=== PATIENT | female | born 1975 | race Caucasian/White ===

== ENCOUNTER → 2018-01-18 16:41 | Outpatient (CLI) | payer BC, SELFPAY ==
--- NOTE | 2018-01-18 16:48 | MM_ITS ---
MM Dig screening mamm BI w/CAD CAD Screening COMPARISON: None, this is baseline INDICATION: There is no personal or family history of breast cancer TECHNIQUE: Standard CC and MLO images were obtained. R2 CAD reviewed. FINDINGS: Prominent heterogenic fibroglandular densities are seen in the subareolar regions and upper outer quadrants. There is a possible asymmetric density upper outer quadrant right breast and is asymmetric density near the axilla tail the left breast possibly low-lying no in addition to area highlighted by CAD as deep to the nipple left breast. Recommend patient return for spot compression views of both breast the areas marked on the film, ultrasound may be necessary as well. There are no suspicious microcalcifications. IMPRESSION: Moderately dense parenchymal pattern with possible asymmetric densities in each breast BI-RADS Category: 0 Need Additional Imaging Evaluation RECOMMENDED FOLLOW-UP: IMM - IMMEDIATE FOLLOW-UP RECOMMENDED (A letter has been sent to the patient regarding results of the study.)
== END ==
PROVIDERS: Family Provider Family Medicine; PCP Family Medicine; Visit Provider Obstetrics & Gynecology
DX: Z12.31 Encounter for screening mammogram for malignant neoplasm of breast (principal)
CPT/HCPCS: 77067

== ENCOUNTER → 2018-02-04 15:05 | Outpatient (CLI) | payer BC, SELFPAY ==
--- NOTE | 2018-02-04 15:10 | MM_ITS ---
MM Dig mamm BI DX w/CAD INDICATION: Abnormal baseline screening mammogram ORDERING PHYSICIAN: Bobby Moreno MD PATIENT AGE: 43 years COMPARISON: 01/18/2018 TECHNIQUE: Problem-solving views performed of both breasts FINDINGS: This report is delayed waiting on the patient to return for an ultrasound. That has not yet occurred therefore, a report will be issued on the mammogram. There is average to dense fibroglandular tissue. Right breast: 8 mm nodular opacity lateral aspect right breast periareolar region. The asymmetric density in the lateral aspect of the right breast may represent overlapping fibroglandular tissue.. Rolled views fail to demonstrate a nodule in the lateral aspect of the right breast. Ultrasound recommended of the right breast Left breast: 15 mm Asymmetric density in the deep lateral aspect of the left breast once again noted on the spot compression views somewhat ill-defined. This also is noted on the rolled views. Ultrasound is suggested. The asymmetric density in the subareolar region on the MLO view does appear to compress out IMPRESSION: Persistent nodular densities in the deep lateral left breast and lateral right breast periareolar region. Ultrasound suggested BI-RADS Category: 0 Need Additional Imaging Evaluation RECOMMENDED FOLLOW-UP: IMM - IMMEDIATE FOLLOW-UP RECOMMENDED (A letter has been sent to the patient regarding results of the study.)
== END ==
PROVIDERS: Visit Provider Obstetrics & Gynecology
DX: R92.8 Other abnormal and inconclusive findings on diagnostic imaging of breast (principal)
CPT/HCPCS: 77066

== ENCOUNTER → 2018-02-17 15:12 | Outpatient (CLI) | payer BC, SELFPAY ==
--- NOTE | 2018-02-17 15:16 | US_ITS ---
US breast RT complete, US breast LT complete INDICATION: Follow-up abnormal mammogram ORDERING PHYSICIAN: Bobby Moreno MD PATIENT AGE: 43 years COMPARISON: 02/04/2018 TECHNIQUE: Bilateral breast ultrasound with axilla FINDINGS: Right breast: 6 x 5 mm cyst at 9:00, 13 x 16 mm cyst at 10:00 No suspicious solid lesions evident. Left breast: 9 x 8 mm cyst at 2:00 7 x 6 mm complex cyst at 3:00, 13 x 13 mm cyst at 4:00 which may account for the asymmetric nodular density noted on the mammogram IMPRESSION: Bilateral breast cysts some of which are complex cysts. The cysts may correspond to the mammographic abnormalities. Recommend 6 month sonographic and mammographic follow-up for confirmation BI-RADS Category: 3 Probably Benign Finding Short Term Follow-up RECOMMENDED FOLLOW-UP: 6M - 6 MONTH FOLLOW-UP (A letter has been sent to the patient regarding results of the study.)
== END ==
PROVIDERS: PCP Family Medicine; Visit Provider Obstetrics & Gynecology
DX: R92.8 Other abnormal and inconclusive findings on diagnostic imaging of breast (principal)
CPT/HCPCS: 76641

== ENCOUNTER 2019-02-08 15:00 | Outpatient (RCR) | payer OTHER, SELFPAY | END 2019-02-08 15:05 | disposition home or self-care (01) | LOC: PT 15:00 | PROVIDERS: Visit Provider Family Medicine | DX: S99.912A Unspecified injury of left ankle, initial encounter (principal) | CPT/HCPCS: 97010; 97014; 97016; 97033; 97035; 97110; 97112; 97140; 97163; 97164; G0283 ==

== ENCOUNTER → 2019-04-24 09:26 | Outpatient (CLI) | payer BC, SELFPAY ==
--- NOTE | 2019-04-24 09:34 | US_ITS ---
PROCEDURE: US TRANSVAGINAL CLINICAL INDICATION: US T/V- Severe Pelvic Pain bleeding- STAT READ Dysfunctional uterine bleeding COMPARISON: No exams were available for comparison FINDINGS: UTERUS: 9cm x 5cmx 3cm with a combined endometrial thickness of 4.8mm. There is a nabothian cyst present at 14 mm. A small cyst is present in the endometrium at 6 mm. LEFT OVARY: [id number] with a volume of 16.3ml. There is a left ovarian cyst at 5.5 x 2 cm. RIGHT OVARY: [id number] with a volume of 193.4ml. The right ovary is enlarged with diffuse lace like heterogeneous echogenicity which has the appearance of an endometrioma versus hemorrhagic cyst. No echogenic foci are evident along the wall. No cul-de-sac fluid apparent. IMPRESSION: 1. Enlarged right ovary with heterogeneous echogenicity which may be due to an endometrioma. Hemorrhagic ovarian cyst included in the differential diagnosis. Recommend 6-12 week follow-up to confirm resolution or stability. 2. 5 x 2 cm left ovarian cyst. Dictated by: Lai Tyson MD 04/24/2019 11:52 Electronically signed by Lai Tyson MD in [place] 04/24/2019 11:52
== END ==
PROVIDERS: PCP Family Medicine; Referring Provider Obstetrics & Gynecology; Visit Provider Obstetrics & Gynecology
DX: R10.2 Pelvic and perineal pain (principal); N93.9 Abnormal uterine and vaginal bleeding, unspecified
CPT/HCPCS: 76830

== ENCOUNTER → 2019-11-10 15:11 | Outpatient (CLI) | payer BC, SELFPAY ==
--- NOTE | 2019-11-10 15:14 | US_ITS ---
PROCEDURE: US TRANSVAGINAL CLINICAL INDICATION: pelvic pain COMPARISON: US TRANSVAGINAL from 04/24/2019 FINDINGS: UTERUS: 8cm x 5cmx 4cm with a combined endometrial thickness of 7.1mm LEFT OVARY: 5wrr7sgz1.1cm with a volume of 11ml. RIGHT OVARY: [id number] with a volume of 9.9ml. There is a nabothian cyst at 15 mm. A complex cyst involves the left ovary measuring 2.7 x 1.5 cm by 2.2 cm. There are internal echoes with some irregularity of the wall. Small follicles are present in the right ovary. No cul-de-sac fluid apparent. IMPRESSION: Complex 2.7 cm left ovarian cyst. Consider short-term follow-up to confirm stability or resolution. Previously there was a 4.9 x 3.6 cm left ovarian cyst as well as a 7.2 x 5.5 cm right ovarian mass which is no longer demonstrated Dictated by: Lai Tyson MD 11/10/2019 16:10 Electronically signed by Lai Tyson MD in [place] 11/10/2019 16:10
== END ==
PROVIDERS: PCP Nurse Practitioner Obstetrics & Gynecology; Visit Provider Nurse Practitioner Obstetrics & Gynecology
DX: R10.2 Pelvic and perineal pain (principal)
CPT/HCPCS: 76830

== ENCOUNTER → 2019-12-07 08:29 | Outpatient (CLI) | payer BC, SELFPAY ==
--- NOTE | 2019-12-07 08:58 | ECG_ITS ---
APPROVED REPORT Exam: Resting ECG HR:58 bpm ECG Measurements Heart Rate 58 AXES [place] 126 P 36 QRSd 72 QRS 69 QT 408 T 43 QTc 400 <Conclusion> Sinus bradycardia Otherwise normal ECG Electronically signed by : Toño Carolina, 12/08/2019 07:12:44
[2019-12-07 09:56] LABS: HCG Qualitative, Serum Negative (Negative)
[2019-12-07 10:04] LABS: Potassium 4.4 mmoL/L (3.5-5.1); Sodium 137 mmol/L (136-145)
[2019-12-07 10:05] LABS: Anion Gap 12.4 mEq/L (5-15); Blood Urea Nitrogen 12 mg/dl (7-17); Calcium 9.7 mg/dl (8.4-10.2); Carbon Dioxide 24 mmol/L (22.0-30.0); Chloride 105 mmol/L (98-107); Estimated Glomerular Filt Rate 91 ml/min (>60); GFR (African American) 111 ML/MIN (>60); Glucose 99 mg/dl (74-100)
[2019-12-07 10:17] LABS: Coronavirus 19 IgG Antibody Negative (Negative); Coronavirus 19 IgM Antibody Negative (Negative)
[2019-12-07 11:47] LABS: Basophils % 0.4 % (0.1-2.0); Eosinophils # 0.3 K/mm3 (0.0-0.4); Eosinophils % 3.6 % (0.1-12.0); Hematocrit 44.9 % (37.0-47.0); Hemoglobin 15.2 g/dL (12.2-16.2); Lymphocytes # 1.8 K/mm3 (0.7-4.5); Lymphocytes % 22.9 % (10-50); Mean Corpuscular HGB Conc 33.9 g/dL (31.8-35.4); Mean Corpuscular Hemoglobin 31.1 pg (27.0-31.2); Mean Corpuscular Volume 91.7 fl (81-99); Mean Platelet Volume 8.3 fl (7.4-10.4); Monocytes # 0.5 K/mm3 (0.1-1.0); Monocytes % 5.8 % (1.7-9.3); Neutrophils # 5.3 K/mm3 (1.8-7.8); Neutrophils % 67.3 % (37.0-80.0); Platelet Count 245 K/mm3 (142-424); Red Cell Distribution Width 13.1 % (11.5-17.5); White Blood Count 7.9 K/mm3 (4.8-10.8)
== END ==
PROVIDERS: Visit Provider Nurse Practitioner Obstetrics & Gynecology
DX: Z01.818 Encounter for other preprocedural examination (principal); N92.0 Excessive and frequent menstruation with regular cycle; R10.2 Pelvic and perineal pain; N80.0 Endometriosis of uterus
CPT/HCPCS: 36415; 80048; 84703; 85025; 86328; 93005

== ENCOUNTER 2019-12-08 10:10 | Observation (INO) | payer BC, SELFPAY ==
[2019-12-06 12:40] VITALS: BMI 29.8
[2019-12-08] VITALS (52 sets, daily range): BP systolic 58–127; BP diastolic 29–85; PULSE 47–98; RESP 12–25; TEMP 36.3–43; O2SAT 90–100
--- NOTE | 2019-12-08 07:59 | P.PN_ITS ---
[facility] Anesthesia Checklist - Structural Data Admitted From: Home Planned Operative Procedure/s: [facility] Consent for Planned Operative Procedure(s) Verified: Yes - Additional verifications Anesthesia Reactions: No Hx Blood Transfusions: No Blood Transfusion Reaction: No - Airway Assessment C-Spine Mobility Assessed: Yes TMJ Mobility Assessed: Yes Dentition: Good Dentition - Neurological Assessment Level of Consciousness: Awake, Alert, Appropriate - Anesthesia Plan Anesthesia Risk discussed: Yes Anesthesia Plan: Verified ASA Class: II Anesthesia Type: General [facility] History I have reviewed the patient's past medical history: Yes Medical History: Reports:: Depression Denies:: Cancer, Diabetes Mellitus Type 1, Diabetes Mellitus Type 2, Internal Pacemaker, MRSA, Seizures *Have you ever received a pneumonia vaccine?: No *Have you received a flu vaccine this season?: Yes Other Medical History: Denies: Blood Transfusion Reaction Anesthesia experience/problems:: none Laterality Cases: Bilateral: Tonsillectomy Other Surgeries: Yes: Appendectomy, , Tubal Ligation. No: Pacemaker Amputation: No Fractures: Yes (ANKLE,BACK,FINGERS,RIBS) - *Social History Smoking Status: Current every day smoker Tobacco Type: cigarettes # Packs/Day (cigarettes): 1 Alcohol Intake: never Alcohol Intake Frequency:: other Substance Use Type: denies use *Occupational Status:: employed Housing: house Household Members: family *Travel in the last 8 weeks: None - Psychiatric History Pschychiatric History:: Reports:: Depression Family Hx:: Cancer
--- NOTE | 2019-12-08 09:33 | P.PN_ITS ---
[facility] Anesthesia Record Part I Intake, IV Amount: 2,500 Estimated blood loss (mL): 150 Urine output (mL): 200 Blood Pressure: 103/60 SaO2: 96 Pulse Rate: 85 Respiratory Rate: 12 Temperature: 97.9 F Patient is:: Awake, Stable Stable to PACU at:: 09:30
--- NOTE | 2019-12-08 09:33 | HMH.OPNOTE ---
Date of procedure: 12/08/19 Pre-op Diagnosis:: Pelvic pain, dysmenorrhea, dyspareunia, vulvar lesions Post-op Diagnosis:: Pelvic pain, dyspareunia, dysmenorrhea, vulvar lesions Procedure performed:: Laparoscopically assisted vaginal hysterectomy, bilateral salpingectomy, removal of vulvar lesions Surgeon:: Estiven Botello MD Fire Services Plumber(s):: Rekha Rodriguez FRUIT PEELER:: Amador Avendaño Anesthesia: GETA Estimated blood loss (mL): 150 Clinical Note:: She is a 44-year-old lady who complains of severe pain with her periods as well as pain with intercourse. Her uterus was exquisitely tender to palpate. She said a previous tubal ligation. After having discussed the risks and benefits we elected to perform a laparoscopically assisted vaginal hysterectomy and bilateral salpingectomy. She also had a vulvar lesion on the left part of her upper vulva as well as on the right part of her upper vulva. The lesion on the right was dark and pigmented. The lesion on the left was just and slightly raised skin tag. Operative findings:: She had a normal-appearing retroverted uterus. The ovaries and tubes appeared normal. The tubes of been previously ligated. The rest the pelvis appeared normal. The upper abdomen appeared normal. She is had a previous appendectomy. There were 2 lesions on the vulva on the left side was a slightly verrucous raised lesion possibly a skin tag. On the right side there was a small 3 mm area that was significantly pigmented. Both were removed with knife. Operative note:: She was taken to the operating room where general anesthesia was found be adequate. She was prepped and draped in normal sterile fashion in the semilithotomy position. A weighted speculum was placed in the vagina and the anterior lip of the cervix was grasped with a tenaculum. An acorn uterine manipulator was then placed within the cervical os. I then changed gloves. I injected 10 cc of 0.5% ropivacaine around the umbilicus and made a small incision within the umbilicus. I inserted a Veress needle into the abdominal cavity. The abdominal cavity was then insufflated with carbon dioxide gas to a pressure of 20 mmHg. I then inserted an 11 mm trocar under direct vision. I injected through and through the pubic hairline, made a small incision here and inserted a 5 mm trocar under direct vision. I identified the inferior epigastric arteries on the left side, went lateral to these and injected through and through. I then made a small incision and inserted an 11 mm trocar under direct vision. A similar 11 mm trocar was placed on the right side. The left round ligament was then grasped and cut through with harmonic scalpel. This was followed by opening up the peritoneum anteriorly to the midline. I then grasped the tube on the left side and cut through this. This is followed by cutting through the left utero-ovarian ligament. I used Harmonic scalpel on the coagulation mode. I then took down the posterior aspect of the broad ligament to the level of the uterosacral ligament. I then skeletonized the uterine arteries on the left side and placed hemoclips on these. Using the harmonic scalpel on coagulation mode adjacent to the cervix I then took down these uterine arteries. I then further freed up the bladder anteriorly and laterally on the left side. I then turned my attention to the right side where I grasped the right round ligament. The right tube was adherent to the right pelvic sidewall and using harmonic scalpel I was able to free this up. I then cut through the right round ligament. I then took down the anterior peritoneum to the midline joining up with the other side. I further dissected the bladder off. The posterior aspect of the right broad ligament was then taken down with harmonic scalpel. I skeletonized the uterine arteries on the right side. I applied hemoclips to the uterine arteries and staying adjacent to the cervix on the right side I took down th
--- NOTE | 2019-12-08 09:41 | HMH.HP ---
*Admission Date: 12/08/19 *Chief complaint: Dysmenorrhea, dyspareunia, pelvic pain, vulvar lesions *History of present illness: She is a 44-year-old lady who complains of severe pain with intercourse as well as severe pain with her periods. She has chronic pelvic pain as well. She had 2 small lesions on her vulva and requested these to be removed at the time of her surgery as well. We discussed the risks and benefits of surgery and she is being admitted for laparoscopically assisted vaginal hysterectomy, bilateral salpingectomy, removal of vulvar lesions. [facility] History I have reviewed the patient's past medical history: Yes Medical History: Reports:: Depression Denies:: Cancer, Diabetes Mellitus Type 1, Diabetes Mellitus Type 2, Internal Pacemaker, MRSA, Seizures *Have you ever received a pneumonia vaccine?: No *Have you received a flu vaccine this season?: Yes Other Medical History: Denies: Blood Transfusion Reaction Anesthesia experience/problems:: none Laterality Cases: Bilateral: Tonsillectomy Other Surgeries: Yes: Appendectomy, , Tubal Ligation. No: Pacemaker Amputation: No Fractures: Yes (ANKLE,BACK,FINGERS,RIBS) - *Social History Smoking Status: Current every day smoker Tobacco Type: cigarettes # Packs/Day (cigarettes): 1 Alcohol Intake: never Alcohol Intake Frequency:: other Substance Use Type: denies use *Occupational Status:: employed Housing: house Household Members: family *Travel in the last 8 weeks: None - Psychiatric History Pschychiatric History:: Reports:: Depression Family Hx:: Cancer Review of Systems - Review of Systems Review of systems:: pertinent systems reviewed and negative unless documented below Meds Home Medications Medication Instructions Recorded Confirmed Type Ketorolac Tromethamine [Toradol 10 mg PO .prn 12/06/19 12/06/19 History 10mg tablet] Sertraline HCl [Zoloft] 50 mg PO DAILY 12/06/19 12/08/19 History Allergies Allergy/AdvReac Type Severity Reaction Status Date / Time Sulfa (Sulfonamide Allergy Unknown Verified 12/08/19 06:33 Antibiotics) [SULFA (SULFONAMIDE ANTIBIOTICS)] Exam Vital signs and Labs for Last 24 Hours: Temp Pulse Resp BP Pulse Ox 97.9 F 85 12 103/60 L 99 12/08/19 09:34 12/08/19 09:34 12/08/19 09:34 12/08/19 09:34 12/08/19 06:35 I & O for Last 24 hours: Intake & Output 12/05/19 12/06/19 12/07/19 12/08/19 11:59 11:59 11:59 11:59 Intake Total 2500 / 2500 Balance 2500 / 2500 Weight 185 lb - Constitutional no acute distress - *Routine HEENT Exam Head: Present: normocephalic Eye: Present: EOMI, PERRL ENT: Present: mucous membranes moist - *Routine Neck Exam Present: supple, full ROM - *Routine Respiratory Exam Absent: accessory muscle use (good air entry bilaterally), wheezes, crackles - *Routine Cardiovascular Exam Present: RRR. Absent: murmur - *Routine Abdominal Exam Present: soft, normoactive bowel sounds. Absent: tenderness, rebound, guarding, mass - *Routine Rectal Exam Patient deferred: visual exam, digital exam - *Routine Exam Patient deferred: external exam, groin exam, perineal exam - *Routine Extremities Exam Present: full ROM. Absent: cyanosis, edema, calf tenderness - *Routine Skin Exam Present: intact (good color) - *Routine Neurological Exam Present: alert, oriented X3 - Routine Psychiatric Exam Present: normal affect Assessment and Plan (1) Dysmenorrhea Current visit: Yes Status: Acute Category: Medical Code(s): N94.6 - Dysmenorrhea, unspecified (2) Pelvic pain Current visit: Yes Status: Acute Category: Medical Code(s): R10.2 - Pelvic and perineal pain (3) Dyspareunia in female Current visit: Yes Status: Acute Category: Medical Code(s): N94.10 - Unspecified dyspareunia (4) Adenomyosis Current visit: Yes Status: Acute Category: Medical Code(s): N80.0 - Endometriosis of uterus (5) Depression
--- NOTE | 2019-12-08 10:10 | PC.NURSE ---
PT ARRIVES TO THE UNIT. POC EXPLAINED AND PATIENT AGREEABLE. PT. A/OX3. LUNGS CTA AND BOWELS HYPOACTIVE. SCUDS APPLIED BLE. PULSES 2+ AND NO EDEMA NOTED. IV INFUSING W/O DIFFICULTY. SMITH IN PLACE AND DRAINING CLEAR YELLOW URINE. NEW GOWN APPLIED TO PATIENT. 4 LAP SITES NOTED. SMALL AMOUNT OF SEROSANG DRAINAGE NOTED TO DRESSING. CALL LIGHT GIVEN AT THIS TIME. WILL CONTINUE TO MONITOR. COVID 19 POLICY PROCEDURES EXPLAINED AND PT AGREEABLE.
--- NOTE | 2019-12-08 11:12 | PC.NURSE ---
PAIN MEDS GIVEN AT THIS TIME PER MAR. RATING PAIN A 6/10- IN LOWER ABD. WILL CONTINUE TO MONITOR.
--- NOTE | 2019-12-08 11:55 | PC.NURSE ---
clear lunch tray given to pt. pt lying in bed sleeping soundly with eyes closed. no distress noted.
[2019-12-08 13:03] LABS: Microscopic,Cath URINE MICROSCOPIC (MICROSCOPIC)
[2019-12-08 13:06] LABS: Appearance,Urine/Cath CLEAR (Clear); Bilirubin,Cath Negative (Negative); Blood, Urine/Cath TRACE-I (Negative); Color,Urine/Cath YELLOW (Yellow); Glucose,Urine/Cath (UA) Negative (Negative); Ketones,Urine/Cath Negative (Negative); Leukocyte Esterase,Cath Negative (Negative); Nitrate,Cath Negative (Negative); Protein,Urine/Cath Negative (Negative); Specific Gravity, Urine/Cath 1.025 (1.005-1.030); Urobilinogen,Cath 0.2 EU/dl (0.2)
--- NOTE | 2019-12-08 13:10 | PC.NURSE ---
WENT IN TO ASSESS PATIENT AROUND 1313. PATIENT AWAKE AT THIS TIME SITTING UP. BP READ AT 64/30, 90% OXYGEN AND 73 HEART RATE, RESP. RATE WAS 22. PLACED PATIENT ON NON-REBREATHER. PATIENT BREATHING RAPIDLY, STATING SHE IS VERY DIZZY AND CAN'T CATCH HER BREATH. BOLUS STARTED AT THIS TIME R/T BLOOD PRESSURE. LUNGS WERE CTA. PATIENT PALE, DIAPHORETIC. 1318 DR SIMS NOTIFIED TO COME TO BEDSIDE IMMEDIATELY FOR EVALUATION OF PATIENT. NURSE AT BEDSIDE X2. NO ABDOMINAL DISTENSION NOTED, LAP SITES UNCHANGED FROM PREVIOUS ASSESSMENT. NO VAGINAL BLEEDING AND ADEQUATE URINE OUTPUT NOTED. 1322 DR. SIMS AT BEDSIDE EXAMINING PATIENT. ORDERS FOR STAT CBC, CHEMISTRY, EKG, AND ABDOMINAL ULTRASOUND. 1329 PT BP IMPROVED WITH MANUAL 80/50, 98% AND 70 HEART RATE, RESP. RATE 20. OXYGEN STILL IN PLACE. PATIENT COLOR HAS IMPROVED. STILL PALE AROUND LIPS. PULSES 2+. pT REPORTS THAT SHE DOES FEEL BETTER. 1347 U/S AT BEDSIDE PERFORMING ULTRASOUND. MD AT BEDSIDE WELL. 1401- RESP. AT BEDSIDE FOR EKG.
[2019-12-08 13:16] LABS: Amorphous Sediment,Ur/Cath 2+ /lpf; Bacteria,Urine/Cath 3+ /lpf
--- NOTE | 2019-12-08 13:21 | HMH.ANESII ---
[facility] Anesthesia Record Part II Discharge Time: 10:00 Destination: floor PACU nurse assessment reviewed?: Yes Patient Condition:: Good Anesthesia Complications:: None Swallowing reflex intact?: Yes Cyanosis?: No Blood Pressure: 97/44 Pulse Rate: 64 Temperature: 97.6 F Mental Status: Alert & Oriented Pain level:: 2 Nausea and/or vomitting:: None Intake, IV Amount: 2,500
--- NOTE | 2019-12-08 13:30 | US_ITS ---
PROCEDURE: US ABDOMEN LIMITED CLINICAL INDICATION: R/O abdominal bleeding Hypotension after surgery, check for fluid or blood COMPARISON: No exams were available for comparison FINDINGS: Limited evaluation is performed of the abdomen and does demonstrate a mild amount of ascites with some perihepatic fluid noted. Small amount fluid is present in the right lower quadrant and in the right hepatorenal space. IMPRESSION: Mild amount of fluid in the abdomen. Dictated by: Lai Tyson MD 12/08/2019 15:40 Lai Tyson MD in [place] 12/08/2019 15:40
--- NOTE | 2019-12-08 13:39 | HMH.ACPN2 ---
Internal Medicine - PN: Subj *Date: 12/08/19 *Time: 13:39 Interval history: I was called to the floor to see the patient who is about 4 hours postop from an LAVH. She had low blood pressure and was feeling lightheaded and short of breath. Her blood pressure was in the 60s over 30s and 40s. Heart rate was in the 60s. She looked quite pale. Exam Vital signs and Labs for Last 24 Hours: Temp Pulse Resp BP Pulse Ox 97.6 F 64 18 97/44 L 95 12/08/19 13:22 12/08/19 13:22 12/08/19 12:30 12/08/19 13:22 12/08/19 12:30 Laboratory Results - last 24 hr 12/08/19 13:02: Urine Color Yellow, Urine Appearance Clear, Urine pH 7.0, Ur Specific [place] 1.025, Urine Protein Negative, Urine Glucose (UA) Negative, Urine Ketones Negative, Urine Blood Trace-i, Urine Nitrate Negative, Urine Bilirubin Negative, Urine Urobilinogen 0.2, Ur Leukocyte Esterase Negative, Urine RBC 3-5, Urine WBC 5-10, Ur Squamous Epith Cells 3-5, Urine Bacteria 3+ A I & O for Last 24 hours: Intake & Output 12/06/19 12/07/19 12/08/19 12/09/19 11:59 11:59 11:59 11:59 Intake Total 2500 / 2500 2500 / 2500 Balance 2500 / 2500 2500 / 2500 Weight 185 lb - Constitutional no acute distress, mild distress, diaphoretic Comments: She looks quite pale - *Routine HEENT Exam Head: Present: normocephalic Eye: Present: EOMI, PERRL ENT: Present: mucous membranes moist - *Routine Respiratory Exam Present: CTA bilaterally - *Routine Cardiovascular Exam Present: RRR - *Routine Abdominal Exam Present: soft, normoactive bowel sounds. Absent: tenderness Comments: Her incisions are clean and dry. There is no abdominal distention. - *Routine Extremities Exam Absent: cyanosis, clubbing, edema Comments: No calf tenderness Assessment and Plan (1) Dysmenorrhea Current visit: Yes Status: Acute Category: Medical Code(s): N94.6 - Dysmenorrhea, unspecified (2) Pelvic pain Current visit: Yes Status: Acute Category: Medical Code(s): R10.2 - Pelvic and perineal pain (3) Dyspareunia in female Current visit: Yes Status: Acute Category: Medical Code(s): N94.10 - Unspecified dyspareunia (4) Adenomyosis Current visit: Yes Status: Acute Category: Medical Code(s): N80.0 - Endometriosis of uterus (5) Depression Current visit: Yes Status: Acute Category: Medical Code(s): F32.9 - Major depressive disorder, single episode, unspecified (6) Low BP Current visit: Yes Status: Acute Category: Medical Code(s): I95.9 - Hypotension, unspecified - Assessment and plan all Dx Assessment and Plan for all problems:: She received about 300 cc of fluids and is actually feeling better. Her blood pressure has risen. Her heart rate has remained the same in the 60s. I suspect she may have had a vagal response. She had 1 of these when she was in the operating room when her heart rate dropped to the 40s. We will get an H&H to get her blood counts. We will get an ultrasound just to look at her abdominal cavity to make sure there are no large collections of fluid. She certainly is not distended. She is now starting to look a little better and she has lost the paleness in her face. Her blood pressure has risen into the 80s over 60s s. It was in the 90s systolic when she came up from surgery. Her heart rate has remained in the 60s. She has had good urine output since her surgery. We will continue with close observation.
--- NOTE | 2019-12-08 14:07 | ECG_ITS ---
APPROVED REPORT Exam: Resting ECG HR:76 bpm ECG Measurements Heart Rate 76 AXES RI 116 P 39 QRSd 68 QRS 49 QT 398 T 49 QTc 447 <Conclusion> Normal sinus rhythm Normal ECG Electronically signed by : Toño Carolina, 12/08/2019 17:42:40
[2019-12-08 14:13] LABS: Hematocrit 35.5 % (37.0-47.0); Hemoglobin 12.1 g/dL (12.2-16.2)
--- NOTE | 2019-12-08 14:15 | PC.NURSE ---
GIVES OKAY TO GIVE PATIENT MORPHINE 1MG.
--- NOTE | 2019-12-08 14:20 | PC.NURSE ---
DR SIMS AT BEDSIDE AGAIN. NOTIFIED OF RECENT VITALS. OKAY WITH THIS. STATES PATIENT LABS WERE WNL. GIVES ORDERS TO CONTINUE TO MONITOR PATIENT AND CALL HIM IF ANY NEED ARISES. ALSO ORDERS FOR DIET TOLERATED AND TO D/C SMITH AFTER SUPPER. ALL ORDERS R/V
--- NOTE | 2019-12-08 14:40 | PC.NURSE ---
OXYGEN OFF AT THIS TIME. PATIENT STATES SHE IS GOING TO TRY TO REST. S/O AT BEDSIDE. VITALS STABLE AT THIS TIME. WILL CLOSELY MONITOR PATIENT.
--- NOTE | 2019-12-08 15:00 | PC.NURSE ---
HEATING PAD GIVEN TO PATIENT. STATES PAIN IS STILL THERE IN LOWER ABD. STATES FEELS LIKE PRESSURE. WILL RECHECK PAIN LEVEL IN 30 MINUTES. VITALS WNL
--- NOTE | 2019-12-08 16:05 | PC.NURSE ---
REASSESSMENT PERFORMED AT THIS TIME. NO CHANGES NOTED. LUNGS CTA AND BOWEL SOUNDS HYPOACTIVE. REPORTS PAIN IS NOW A 4/10. JUST PRESSURE IN LOWER ABD. 4 LAP SITES NOTED WITH SMALL AMOUNT OF SEROSANG DRAINAGE. ABD IS TENDER TO TOUCH. SMALL VAGINAL BLEEDING AND TWO AREAS NOTED WHERE MD REMOVED LESIONS. SCUDS STILL APPLIED BLE. IV INFUSING WITHOUT DIFFICULTY. PT COMPLAINS OF PAIN WHEN BREATHING IN DEEPLY. MD AWARE OF THIS. VITALS WNL. WILL CONTINUE TO CLOSELY MONITOR. PATIENT WANTS TO GET UP AND USE THE RESTROOM. WILL D/C SMITH.
--- NOTE | 2019-12-08 16:18 | PC.NURSE ---
REMOVED CATHETER AT THIS TIME. PT TOLERATED WELL. CALLED FOR ASSISTANCE WITH THIS. PATIENT SAT ON THE SIDE OF THE BED. PATIENT STATED SHE WAS DIZZY AND THEN STARTED TO FALL BACK. PATIENT WAS EASILY LAYED DOWN IN BED AND OXYGEN WAS APPLIED. SYNCOPAL EPISODE NOTED TO LAST 5-10 SECONDS. PATIENT AROUSABLE TO NAME AND TOUCH AFTER EPISODE. VITALS WERE AT PATIENTS BASELINE AT 90/47, 100 % ON OXYGEN, 47 HEART RATE. CALLED FOR POLYMERIZATION OVEN OPERATOR TO COME OVER TO ASSESS PATIENT. 250ML BOLUS WAS GIVEN AT THIS TIME OF WARM LR. PT RECOVERED WELL. EXPLAINED TO PATIENT WE WOULD BE USING THE BEDPAN UNTIL SHE IS STABLE ENOUGH TO AMBULATE. POT AGREEABLE. NO DISTRESS NOTED IN PATIENT AT THIS TIME. WILL CLOSELY MONITOR PATIENT
--- NOTE | 2019-12-08 17:00 | PC.NURSE ---
REGULAR DINNER TRAY BROUGHT TO PATIENT. PT STATES SHE FEELS BETTER. NO FURTHER NEEDS. NO DISTRESS NOTED.
--- NOTE | 2019-12-08 17:33 | PC.NURSE ---
PATIENT COMPLAINT OF SHOULDER PAIN- WILL GET ORDER FOR SIMETHICONE FOR PATIENT TO TRY THIS.
--- NOTE | 2019-12-08 17:59 | PC.NURSE ---
pt resting soundly in bed. no distress noted.
--- NOTE | 2019-12-08 18:05 | PC.NURSE ---
went into assess patient. patient having alot of gas pain- pain under ribs. patient breathing fast - appears very anxious. will given gas meds and see how this affects patient. advised against carbonated beverages. pt did drink two sprites earlier and has tolerated regular diet well. will continue to closely monitor. no distress
--- NOTE | 2019-12-08 18:21 | PC.NURSE ---
patient s/o called out stated patient needed me. Patient with non rebreather on face gasping for air. patient very anxious at this time. vitals all stable. applied cool wash cloth to patients forehead and made her focus on me. patient was able to slow breathing down. patient states pain still under rib cage and that she can not deep breathe. will call
--- NOTE | 2019-12-08 18:25 | PC.NURSE ---
dr. amador called at this time. report given on patients vitals, and symptoms. orders from md to decrease fluids to 50ml/hr and to order repeat h/h all orders r/v. states to have lab call him
--- NOTE | 2019-12-08 18:40 | PC.NURSE ---
oxygen off at this time. no distress
--- NOTE | 2019-12-08 18:42 | PC.NURSE ---
patient resting in bed now sitting up. oxygen is off at this time. will continue to closely monitor
[2019-12-08 18:47] LABS: Hematocrit 30.5 % (37.0-47.0)
[2019-12-08 18:55] LABS: Hemoglobin 10.8 g/dL (12.2-16.2)
--- NOTE | 2019-12-08 19:08 | PC.NURSE ---
report given to ilia fuentes rn
--- NOTE | 2019-12-08 19:10 | PC.NURSE ---
Report received from Michelle Bowie RN.
--- NOTE | 2019-12-08 19:23 | PC.NURSE ---
Spoke with Dr. Botello over telephone regarding pt. BP down to 74/38, Pt. has non-rebreather on, O2 sats at 98%. Pt. reports feeling weak, and not right. Michelle Bowie RN at bedside, Reports pt. had 2 previous episodes during the day. Dr. Botello v/u and on his way in.
--- NOTE | 2019-12-08 19:30 | PC.NURSE ---
Dr. Botello in room with pt. at this time.
--- NOTE | 2019-12-08 19:31 | PC.NURSE ---
Supplier Diversity Director notified of need for surgery team per Dr. Botello.
--- NOTE | 2019-12-08 19:32 | PC.NURSE ---
Surgery team paged.
--- NOTE | 2019-12-08 19:35 | PC.NURSE ---
Spoke with Rekha Woosd, and Janae.
--- NOTE | 2019-12-08 19:37 | P.PN_ITS ---
Internal Medicine - PN: Subj *Date: 12/08/19 *Time: 19:37 Interval history: She has had an another episode of feeling lightheaded and short of breath. Her blood pressure dropped into the 70s. She is pale and diaphoretic. We had repeated her hemoglobin at 6:30 PM and it was 10.8 it had been 12.1 about 2:00 in the afternoon. Exam Vital signs and Labs for Last 24 Hours: Temp Pulse Resp BP Pulse Ox 98.7 F 83 20 127/73 97 12/08/19 17:00 12/08/19 18:30 12/08/19 18:30 12/08/19 18:30 12/08/19 18:30 Laboratory Results - last 24 hr 12/08/19 13:02: Urine Color Yellow, Urine Appearance Clear, Urine pH 7.0, Ur Specific [place] 1.025, Urine Protein Negative, Urine Glucose (UA) Negative, Urine Ketones Negative, Urine Blood Trace-i, Urine Nitrate Negative, Urine Bilirubin Negative, Urine Urobilinogen 0.2, Ur Leukocyte Esterase Negative, Urine RBC 3-5, Urine WBC 5-10, Ur Squamous Epith Cells 3-5, Urine Bacteria 3+ A 12/08/19 13:40: Hgb 12.1 L, Hct 35.5 L 12/08/19 18:41: Hgb 10.8 L D, Hct 30.5 L I & O for Last 24 hours: Intake & Output 12/06/19 12/07/19 12/08/19 12/09/19 11:59 11:59 11:59 11:59 Intake Total 2500 / 2500 2500 / 2500 Output Total 650 / 650 Balance 2500 / 2500 1850 / 1850 Weight 185 lb - Constitutional no acute distress Comments: She appears pale - *Routine Respiratory Exam Present: CTA bilaterally. Absent: accessory muscle use - *Routine Cardiovascular Exam Present: RRR - *Routine Abdominal Exam Present: soft, normoactive bowel sounds. Absent: tenderness Comments: Her abdomen may be slightly more distended than it was earlier on today but it is soft and tender due to the postsurgical state. Assessment and Plan (1) Dysmenorrhea Current visit: Yes Status: Acute Category: Medical Code(s): N94.6 - Dysmenorrhea, unspecified (2) Pelvic pain Current visit: Yes Status: Acute Category: Medical Code(s): R10.2 - Pelvic and perineal pain (3) Dyspareunia in female Current visit: Yes Status: Acute Category: Medical Code(s): N94.10 - Unspecified dyspareunia (4) Adenomyosis Current visit: Yes Status: Acute Category: Medical Code(s): N80.0 - Endometriosis of uterus (5) Depression Current visit: Yes Status: Acute Category: Medical Code(s): F32.9 - Major depressive disorder, single episode, unspecified (6) Low BP Current visit: Yes Status: Acute Category: Medical Code(s): I95.9 - Hypotension, unspecified (7) Postoperative vaginal bleeding following genitourinary procedure Current visit: Yes Status: Acute Category: Medical Code(s): N99.820 - Postprocedural hemorrhage of a genitourinary system organ or structure following a genitourinary system procedure - Assessment and plan all Dx Assessment and Plan for all problems:: Given the fact that she has dropped her blood pressure and her hemoglobin has dropped we will go ahead and do a laparoscopy with possible laparotomy for postoperative bleeding. We discussed the risks of surgery that includes bleeding, infection, injuries to other structures. We discussed the risk of laparotomy. We will go ahead with a laparoscopy initially to have a look and see if there are any areas that are actively bleeding.
--- NOTE | 2019-12-08 19:40 | PC.NURSE ---
Consent for surgery signed by pt. and witnessed by this nurse at this time.
--- NOTE | 2019-12-08 19:45 | PC.NURSE ---
Addendum entered by Mena Beltran RN 12/08/19 21:20: catheter inserted by Kathy Ivory. Original Note: 16 Fr Ace catheter inserted at this time. Pt. tolerated well.
--- NOTE | 2019-12-08 19:45 | PC.NURSE ---
Orders received to type and cross [address] on hold. Orders received from Dr. Botello, orders for read back and verified.
--- NOTE | 2019-12-08 20:10 | PC.NURSE ---
Pt. to surgery via bed accompanied x2
--- NOTE | 2019-12-08 20:12 | PC.NURSE ---
Pt arrvied via surgery, reported given to Chuck CUMMINGS
--- NOTE | 2019-12-08 20:58 | PC.NURSE ---
ALL CARE AND CHARTING BY Kathy DEY WAS UNDER MY DIRECT SUPERVISION.
--- NOTE | 2019-12-08 21:25 | PC.NURSE ---
Pt. remains with surgery team at this time.
--- NOTE | 2019-12-08 22:18 | HMH.OPNOTE ---
Date of procedure: 12/08/19 Pre-op Diagnosis:: Postoperative bleeding Post-op Diagnosis:: Postoperative bleeding Procedure performed:: Diagnostic laparoscopy with clipping of small bleeding vessel Surgeon:: Estiven Botello MD [employer] ADMIN:: Chuck Gibson Anesthesia: GETWon Estimated blood loss (mL): 100 Clinical Note:: She is a 44-year-old lady who underwent a laparoscopic hysterectomy earlier today and a few hours after surgery had some drop in her blood pressure. She recovered fairly rapidly and it was unclear whether this was a vagal response or was as a result of bleeding. We checked her hemoglobin at that time and it was 12.1. 4 hours later it was 10.8. She had another episode of low blood pressure and feeling short of breath so we elected to take her to the operating room to look for any active bleeding. Operative findings:: She had approximately 1400 cc of clots within the pelvis. There was oozing from the right uterine artery area. We were able to apply a number of surgical clips to this area. The ovarian pedicles were dry the rest the pelvis was dry. Operative note:: She was taken the operating room where general anesthesia was found be adequate. She was prepped and draped in normal sterile fashion in the semilithotomy position. I opened up her umbilical artery incision and remove the sutures. I was then able to place an 11 mm trocar under direct vision. I insufflated the abdominal cavity with carbon oxide gas to pressure of 20 mmHg. I then opened up the incision the left lower quadrant and once again inserted an 11 mm trocar here under direct vision. I then placed an 8 mm trocar under direct vision at the suprapubic port. Upon entering the abdominal cavity was noted that there was copious blood clots and I was able to remove most of these with suction. I then placed the patient in lithotomy position and saw on the right side near the uterine arteries a small amount of oozing in that area. It had been previously dry when we had finished the surgery prior. I grasped the area and applied a number of hemoclips in this area. The area was rinsed and once again it was found to be completely hemostatic. I then rinsed the pelvis and upper abdomen with saline and I used approximately 12,500 cc of saline to completely ripped the upper abdomen and pelvis. The deficit was approximately 1400 cc. Once again we assured hemostasis and checked all areas for any active bleeding. We let the gas out of the abdomen and checked again and once again the area was completely dry. I elected to place a 2 large pieces of Surgicel on the right side where there had been bleeding. I wrapped the left ovarian pedicle in a piece of Surgicel as well even though this area was completely dry. I left a gas of the abdomen and once again checked for hemostasis while the pressure was low. There were no areas of bleeding noted at all. I then reinsufflated the abdominal cavity and once again hemostasis was assured. The gas was let out of the abdomen once again and the secondary trochars removed under direct vision. The primary trocar and camera were then removed together. No bowel was seen to follow. The left lower quadrant 11 mm trocar site was closed in 2 layers deeply with [id number] 2-0 Vicryl suture. The skin was closed with running subcuticular 4-0 Monocryl suture. The 8 mm trocar site was closed deeply with 2-0 Vicryl suture followed by subcuticular 4-0 Monocryl. The umbilical port was closed with [id number] 2-0 Vicryl suture followed by subcuticular 4-0 Monocryl suture for the skin. Sterile dressings were applied. She tolerated the procedure well and was taken recovery room in excellent condition. All sponge, instruments and needle counts were correct. The estimated blood loss was less than 100 cc intraoperatively and approximately 1300 cc preoperatively. Condition: stable Disposition: PACU Specimens:: None Complications:: None
--- NOTE | 2019-12-08 22:20 | PC.NURSE ---
Pt. remains in OR.
--- NOTE | 2019-12-08 22:30 | HMH.ANESI ---
[facility] Anesthesia Record Part I Intake, IV Amount: 1,600 Estimated blood loss (mL): 100 (100 intraoperative, 1400 preoperative) Urine output (mL): 200 Blood Pressure: 108/54 SaO2: 97 Pulse Rate: 93 Respiratory Rate: 16 Temperature: 97.5 F Patient is:: Drowsy, Stable Stable to PACU at:: 22:25
[2019-12-08 22:43] LABS: Hematocrit 27.4 % (37.0-47.0)
[2019-12-08 22:54] LABS: Hemoglobin 9.2 g/dL (12.2-16.2)
--- NOTE | 2019-12-08 22:55 | INFXCTL.NOTE ---
Report received from Brigid Avendaño RN.
--- NOTE | 2019-12-08 23:00 | PC.NURSE ---
Pt. returned to room 279. Pt. tolerated well. Pt. denies pain at this time. Pt. belching. Nurse offered wet washcloths to clean hair and face since pt. vomited during surgery, pt. refused and states I'll wait until i can get up in the morning. Pt. denies further needs, B/P monitor set to take BP q15 minutes. Nurse educated pt. and family on post op protocol and incisions. Pt. and family v/u. and denies further needs, will continue to monitor.
[2019-12-09] VITALS (33 sets, daily range): BP systolic 86–118; BP diastolic 31–58; PULSE 71–89; RESP 16–20; TEMP 36.3–37.2; O2SAT 94–100
--- NOTE | 2019-12-09 01:30 | PC.NURSE ---
Pt. resting in bed, reports her pain is better states this is probably what i should have felt like the first time , and that she is having a hard time getting to sleep. Pt. reports taking Melatonin but unsure of dose at this time. Pt. denies needs, will continue to monitor.
--- NOTE | 2019-12-09 05:00 | PC.NURSE ---
Routine assessment completed. Lungs CTA, Heart at RRR. Bowel Sounds active x4 quadrants. Telfa and tegaderm x2 noted to be C/D/I. Telfa and tegaderm to lower ABD. noted to be have moderate amount of serosanguineous drainage. Telfa and tegaderm to left of ABD noted to have scant amount of serosanguineous drainage. Pt. reports gas pain in right upper quadrant rates at 4/10, incisional pain at 4/10.Toradol given. Nurse informed pt. P.O pain medications available again at 06:30. Pt. v/u and denies further needs.
--- NOTE | 2019-12-09 07:17 | PC.NURSE ---
report given to Lamont Cerna RN.
[2019-12-09 07:47] LABS: Basophils % 0.1 % (0.1-2.0); Eosinophils % 0.1 % (0.1-12.0); Lymphocytes # 1.9 K/mm3 (0.7-4.5); Lymphocytes % 10.2 % (10-50); Mean Corpuscular HGB Conc 32.7 g/dL (31.8-35.4); Mean Corpuscular Hemoglobin 30.3 pg (27.0-31.2); Mean Corpuscular Volume 92.8 fl (81-99); Mean Platelet Volume 8.8 fl (7.4-10.4); Monocytes % 5.5 % (1.7-9.3); Neutrophils # 15.9 K/mm3 (1.8-7.8); Neutrophils % 84.1 % (37.0-80.0); Platelet Count 224 K/mm3 (142-424); Red Blood Count 2.55 M/mm3 (4.20-5.40); Red Cell Distribution Width 13.5 % (11.5-17.5); White Blood Count 18.9 K/mm3 (4.8-10.8)
[2019-12-09 07:49] LABS: Hematocrit 23.6 % (37.0-47.0); Hemoglobin 7.7 g/dL (12.2-16.2)
[2019-12-09 07:51] LABS: MANUAL DIFFERENTIAL MANUAL DIFFERENTIAL (MANUAL DIFF)
[2019-12-09 08:02] LABS: Chloride 106 mmol/L (98-107); Potassium 3.9 mmoL/L (3.5-5.1); Sodium 136 mmol/L (136-145)
[2019-12-09 08:05] LABS: Anion Gap 10.9 mEq/L (5-15); Blood Urea Nitrogen 10 mg/dl (7-17); Carbon Dioxide 23 mmol/L (22.0-30.0); Creatinine Clearance Estimated 160 mL/min (50-200); Estimated Glomerular Filt Rate 109 ml/min (>60); GFR (African American) 132 ML/MIN (>60); Glucose 120 mg/dl (74-100)
[2019-12-09 08:06] LABS: Calcium 7.7 mg/dl (8.4-10.2)
[2019-12-09 08:36] LABS: Lymphocytes % 17 % (10-50); Monocytes % 2 % (2-9); Neutrophils % 81 % (42-76); Platelet Estimate Normal; RBC Morphology Normal; Total Cells Counted 100
--- NOTE | 2019-12-09 08:38 | HMH.ANESII ---
[facility] Anesthesia Record Part II Discharge Time: 22:55 Destination: Obstetric PACU nurse assessment reviewed?: Yes Patient Condition:: Good Anesthesia Complications:: None Swallowing reflex intact?: Yes Cyanosis?: No Blood Pressure: 118/58 Pulse Rate: 89 Temperature: 97.5 F Mental Status: Alert & Oriented Pain level:: 3 Nausea and/or vomitting:: None Intake, IV Amount: 0
--- NOTE | 2019-12-09 09:10 | PC.NURSE ---
12/09/19 AT 0800. 4 LAP SURGICAL SITES NOTED TO BE COVERED WITH TELFA AND TEGADERM WITH OLD BLOOD DRAINAGE NOTED. WILL CHANGE AFTER SHOWER TODAY.
--- NOTE | 2019-12-09 10:54 | HMH.ACPN2 ---
Internal Medicine - PN: Subj *Date: 12/09/19 *Time: 10:54 Interval history: She is doing much better this morning post surgery. Her hemoglobin had dropped to 7.7 so we are giving her a couple of units of blood. She looks much better this morning. She denies any shortness of breath, chest pain or calf tenderness. She does have some diaphragmatic tenderness. Exam Vital signs and Labs for Last 24 Hours: Temp Pulse Resp BP Pulse Ox 97.8 F 88 18 105/41 L 98 12/09/19 10:35 12/09/19 10:35 12/09/19 10:35 12/09/19 10:35 12/09/19 10:35 Laboratory Results - last 24 hr 12/08/19 13:02: Urine Color Yellow, Urine Appearance Clear, Urine pH 7.0, Ur Specific [place] 1.025, Urine Protein Negative, Urine Glucose (UA) Negative, Urine Ketones Negative, Urine Blood Trace-i, Urine Nitrate Negative, Urine Bilirubin Negative, Urine Urobilinogen 0.2, Ur Leukocyte Esterase Negative, Urine RBC 3-5, Urine WBC 5-10, Ur Squamous Epith Cells 3-5, Urine Bacteria 3+ A 12/08/19 13:40: Hgb 12.1 L, Hct 35.5 L 12/08/19 18:41: Hgb 10.8 L D, Hct 30.5 L 12/08/19 18:41: Blood Type Confirm B Positive 12/08/19 19:50: Blood Type B Positive, Antibody Screen Negative, Crossmatch (AHG) See Detail 12/08/19 22:26: Hgb 9.2 L D, Hct 27.4 L 12/09/19 07:15: WBC 18.9 H D, RBC 2.55 L D, Hgb 7.7 L*, Hct 23.6 L*, MCV 92.8, MCH 30.3, MCHC 32.7, RDW 13.5, Plt Count 224, MPV 8.8, Neut % (Auto) 84.1 H, Lymph % (Auto) 10.2, [place] % (Auto) 5.5, Eos % (Auto) 0.1, Baso % (Auto) 0.1, Neut # (Auto) 15.9 H, Lymph # (Auto) 1.9, [place] # (Auto) 1.0, Eos # (Auto) 0.0, Baso # (Auto) 0.0, Total Counted 100, Neutrophils % (Manual) 81 H, Lymphocytes % (Manual) 17, Monocytes % (Manual) 2, Platelet Estimate Normal, RBC Morphology Normal 12/09/19 07:15: Sodium 136, Potassium 3.9, Chloride 106, Carbon Dioxide 23, Anion Gap 10.9, BUN 10, Creatinine 0.60, Estimated Creat Clear 160, Estimated GFR 109, Est GFR ( Amer) 132, Glucose 120 H, Calcium 7.7 L D I & O for Last 24 hours: Intake & Output 12/06/19 12/07/19 12/08/19 12/09/19 11:59 11:59 11:59 11:59 Intake Total 2500 / 2500 6475 / 6475 Output Total 1450 / 1450 Balance 2500 / 2500 5025 / 5025 Weight 185 lb - Constitutional no acute distress - *Routine HEENT Exam Head: Present: normocephalic Eye: Present: EOMI, PERRL ENT: Present: mucous membranes moist - *Routine Neck Exam Present: supple. Absent: lymphadenopathy - *Routine Respiratory Exam Present: CTA bilaterally. Absent: accessory muscle use - *Routine Cardiovascular Exam Present: RRR - *Routine Abdominal Exam Present: soft, normoactive bowel sounds. Absent: tenderness Assessment and Plan (1) Dysmenorrhea Current visit: Yes Status: Acute Category: Medical Code(s): N94.6 - Dysmenorrhea, unspecified (2) Pelvic pain Current visit: Yes Status: Acute Category: Medical Code(s): R10.2 - Pelvic and perineal pain (3) Dyspareunia in female Current visit: Yes Status: Acute Category: Medical Code(s): N94.10 - Unspecified dyspareunia (4) Adenomyosis Current visit: Yes Status: Acute Category: Medical Code(s): N80.0 - Endometriosis of uterus (5) Depression Current visit: Yes Status: Acute Category: Medical Code(s): F32.9 - Major depressive disorder, single episode, unspecified (6) Low BP Current visit: Yes Status: Acute Category: Medical Code(s): I95.9 - Hypotension, unspecified (7) Postoperative vaginal bleeding following genitourinary procedure Current visit: Yes Status: Acute Category: Medical Code(s): N99.820 - Postprocedural hemorrhage of a genitourinary system organ or structure following a genitourinary system procedure - Assessment and plan all Dx Assessment and Plan for all problems:: She is doing much better this morning post surgery. Her hemoglobin has dropped to 7.7 we will go ahead and give her 2 units of blood. She denies shortness of breath, chest pain or calf tenderness. She
--- NOTE | 2019-12-09 11:24 | P.CONPHA_ITS ---
[facility] Pharmacy VTE Monitoring - Patient Demographics Admission date: 12/09/19 Report Date: 12/09/19 Time: 11:24 Allergies/Adverse Reactions: Patient Allergies Sulfa (Sulfonamide Antibiotics) [SULFA (SULFONAMIDE ANTIBIOTICS)] Allergy (Unknown, Verified 12/08/19 06:33) Height: 1.68 m Weight: 83.915 kg Patient Problems: Current Active Problems Dyspareunia (Acute) Dysmenorrhea (Acute) Pelvic pain (Acute) Dyspareunia in female (Acute) Adenomyosis (Acute) Depression (Acute) Low BP (Acute) Postoperative vaginal bleeding following genitourinary procedure (Acute) - VTE Risk Labs: VTE Related Lab Results Hgb 7.7 g/dL (12.2-16.2) L* 12/09/19 07:15 Hct 23.6 % (37.0-47.0) L* 12/09/19 07:15 Plt Count 224 K/mm3 (142-424) 12/09/19 07:15 BUN 10 mg/dl (7-17) 12/09/19 07:15 Creatinine 0.60 mg/dl (0.52-1.04) 12/09/19 07:15 Estimated Creat Clear 160 mL/min (50-200) 12/09/19 07:15 - Prophylaxis Types of VTE Prophylaxis: IPCS Knee High (SCUDS ORDERED) Location of Applied Device: Bilateral Lower Extremeties
[2019-12-09 12:46] LABS: Hematocrit 28.7 % (37.0-47.0)
[2019-12-09 12:48] LABS: Hemoglobin 9.8 g/dL (12.2-16.2)
--- NOTE | 2019-12-09 16:33 | PC.NURSE ---
no acute changes from previos assessment. voiding since delacruz cath removed. scant amount of vaginal bleeding noted. blood pressure remains low, however last h&h 9.8/28.7. Overall stable. Afebrile. not passing in flatus. 4 lap sites. CDI. dressings changed today. patient tolerated well.
--- NOTE | 2019-12-09 19:08 | PC.NURSE ---
report given dede fuentes rn
--- NOTE | 2019-12-09 19:10 | PC.NURSE ---
Report received from Lamont Cerna RN.
--- NOTE | 2019-12-09 22:00 | PC.NURSE ---
Pt. walked around unit for 30 minutes to aid in passing flatus. Pt. tolerated well. Pt. denies further needs.
--- NOTE | 2019-12-10 01:10 | PC.NURSE ---
Report given to Adilene Hernandez RN.
--- NOTE | 2019-12-10 01:10 | PC.NURSE ---
report received from Audrey Beltran RN
[2019-12-10 04:37] VITALS: BP 88/50; PULSE 78; RESP 17; TEMP 37.1
--- NOTE | 2019-12-10 04:43 | PC.NURSE ---
pt has rested well throughout shift, pt alert and oriented x 3 and able to make needs known, lungs clear to auscutate, heart rate regular, bs x 4 quads, pt states she isnt passing any flatus and no bm, good urine output throughout shift, bandaids in place to 4 lap incisions bruising noted around incisions, no edema noted, pt medicated for pain with good response throughout shift, no distress noted at this time will continue to monitor at this time
--- NOTE | 2019-12-10 06:58 | PC.NURSE ---
report given to Haily Cerna RN
[2019-12-10 08:00] VITALS: BP 100/48; PULSE 81; RESP 18; TEMP 37.1; O2SAT 98
[2019-12-10 08:01] LABS: Basophils % 0.2 % (0.1-2.0); Eosinophils # 0.2 K/mm3 (0.0-0.4); Eosinophils % 2.1 % (0.1-12.0); Hematocrit 25.7 % (37.0-47.0); Lymphocytes # 2.6 K/mm3 (0.7-4.5); Lymphocytes % 27.3 % (10-50); Mean Corpuscular HGB Conc 33.8 g/dL (31.8-35.4); Mean Corpuscular Volume 91.6 fl (81-99); Mean Platelet Volume 9.5 fl (7.4-10.4); Monocytes # 0.5 K/mm3 (0.1-1.0); Monocytes % 5.4 % (1.7-9.3); Neutrophils # 6.2 K/mm3 (1.8-7.8); Platelet Count 150 K/mm3 (142-424); Red Cell Distribution Width 14.3 % (11.5-17.5); White Blood Count 9.6 K/mm3 (4.8-10.8)
[2019-12-10 08:11] LABS: Hemoglobin 8.7 g/dL (12.2-16.2)
--- NOTE | 2019-12-10 10:04 | HMH.DCSUM ---
General - General Admission date:: 12/08/19 Discharge date: 12/10/19 HPI HPI: She is a 44-year-old lady who complains of severe pain with intercourse as well as severe pain with her periods. She has chronic pelvic pain as well. She had 2 small lesions on her vulva and requested these to be removed at the time of her surgery as well. We discussed the risks and benefits of surgery and she is being admitted for laparoscopically assisted vaginal hysterectomy, bilateral salpingectomy, removal of vulvar lesions. Hospital Course Hospital Course: On December 08, 2019 she underwent a laparoscopic-assisted vaginal hysterectomy and bilateral salpingectomy. She was doing well post operatively and then about 4 hours after surgery she had a drop in her blood pressure and was feeling lightheaded. It was not clear whether this was a vagal reaction or blood loss. She subsequently had another episode later on in the afternoon and early evening and as result of that we elected to take her back for diagnostic laparoscopy to investigate bleeding. On examination the operating room we noted that there was a large amount of blood in the pelvis. Subsequently was approximately 1400 cc. She had a small amount of bleeding in the right side near the uterine arteries. It was just oozing. This was clipped and the bleeding was stopped. She was completely hemostatic. She received 2 units of blood and her hemoglobin toan to 9.8. This morning it is 8.7 but she has been receiving a lot of fluids overnight. She feels well and will be discharged home this morning. She denies shortness of breath, calf pain or chest pain. She has been passing gas. She is eating and drinking and ambulating. She is voiding well. She has not had a bowel movement. She is discharged home to follow-up with me in approximately 2 weeks time. She will continue with her home medications. She will start a women's One-A-Day vitamin with iron and will take iron tablets. She was given a prescription for Percocet 5/325 number 30 tablets. She was given the usual instructions with respect to limiting her activity, driving and sexual activity. Her condition on discharge is stable and improved. Objective Vital signs: Temp Pulse Resp BP Pulse Ox 98.7 F 81 18 100/48 L 98 12/10/19 08:00 12/10/19 08:00 12/10/19 08:00 12/10/19 08:00 12/10/19 08:00 no acute distress - *Routine HEENT Exam Head: Present: normocephalic Eye: Present: EOMI, PERRL ENT: Present: mucous membranes moist - *Routine Neck Exam Present: supple - *Routine Respiratory Exam Present: CTA bilaterally. Absent: accessory muscle use - *Routine Cardiovascular Exam Present: RRR - *Routine Abdominal Exam Present: soft, normoactive bowel sounds. Absent: tenderness Comments: Her belly is soft and her incisions are clean and dry. Results Labs on day of discharge: Labs from last 24 hours 12/10/19 12/09/19 12/08/19 07:44 12:35 19:50 WBC 9.6 D RBC 2.80 L Hgb 8.7 L D 9.8 L D Hct 25.7 L 28.7 L MCV 91.6 MCH 31.0 MCHC 33.8 RDW 14.3 Plt Count 150 D MPV 9.5 Neut % (Auto) 65.0 Lymph % (Auto) 27.3 [place] % (Auto) 5.4 Eos % (Auto) 2.1 Baso % (Auto) 0.2 Neut # (Auto) 6.2 Lymph # (Auto) 2.6 [place] # (Auto) 0.5 Eos # (Auto) 0.2 Baso # (Auto) 0.0 Blood Type B Positive Antibody Screen Negative Crossmatch (AHG) See Detail Preliminary micro results at discharge 12/08/19 13:02 Urine Culture - Preliminary Urine,Catheterized NO GROWTH AFTER 24 HOURS DS: Diagnosis - Discharge Diagnosis (1) Dysmenorrhea Status: Acute (2) Pelvic pain Status: Acute (3) Dyspareunia in female Status: Acute (4) Adenomyosis Status: Acute (5) Depression Status: Acute (6) Low BP Status: Acute (7) Postoperative vaginal bleeding following genitourinary procedure Status: Acute Discharge Plan
== END 2019-12-10 10:49 | disposition home or self-care (01) ==
LOC: OB 10:36
PROVIDERS: Admitting Provider Nurse Practitioner Obstetrics & Gynecology; PCP Family Medicine; Visit Provider Nurse Practitioner Obstetrics & Gynecology
PROC: 0UT9FZZ Resection of Uterus, Via Natural or Artificial Opening With Percutaneous Endoscopic Assistance (ICD-10-PCS; CPT 58552; principal; 2019-12-08 07:30)
PROC: (CPT 49320; principal; 2019-12-08 20:30)
DX: N94.6 Dysmenorrhea, unspecified (principal); R10.2 Pelvic and perineal pain; N94.10 Unspecified dyspareunia; N99.820 Postprocedural hemorrhage of a genitourinary system organ or structure following a genitourinary system procedure; Z88.2 Allergy status to sulfonamides; Z79.899 Other long term (current) drug therapy; D28.0 Benign neoplasm of vulva
CPT/HCPCS: 58552; 35840; 36430; 36415; 76705; 80048; 81001; 85007; 85014; 85018; 85025; 86850; 87086; 93005; 94761; 96372; 96374; G0378; J2405; J2710; P9016

== ENCOUNTER → 2020-01-24 08:03 | Outpatient (CLI) | payer BC, SELFPAY ==
--- NOTE | 2020-01-24 08:39 | MM_ITS ---
PROCEDURE: MM DIG SCREENING MAMM BI W/CAD Digital Breast Tomosynthesis Included CLINICAL INDICATION: Routine Screening Mammogram There is no personal or family history of breast cancer. COMPARISON: MG SCBI MM Dig screening mamm BI w/CAD from 01/18/2018 MG DXBI MM Dig mamm BI DX w/CAD from 02/04/2018 US BREASTLT US breast LT complete from 02/17/2018 TECHNIQUE: Standard CC and MLO images and 3D Tomosynthesis was obtained. R2 CAD reviewed. FINDINGS: Scattered fibroglandular densities are seen in both breast primarily upper outer quadrants. There is a dominant oval hyperdense lesion quadrant left breast at the 3 to 4 o'clock position which has been noted previously but has more than doubled in size since the previous mammograms January 2018. There is some slight and questionable irregularity of the border only definitely seen on the CC projection. Recommend the patient return for ultrasound examination. There are stable small nodular lesions upper-outer quadrant right breast and stable tiny nodular densities axillary tail left breast likely low-lying nodes. IMPRESSION: Moderate breast density with change in asymmetric density left breast BI-RAD Category: 0 Need Additional Imaging Evaluation FOLLOW-UP: IMM Immediate Follow-up Recommended (A letter has been sent to the patient regarding results of the study.) Dictated by: Dr. Cole Meehan MD 01/29/2020 11:36 Dr. Cole Meehan MD in [place] 01/29/2020 11:36
[2020-01-24 09:07] LABS: Basophils % 0.6 % (0.1-2.0); Eosinophils # 0.3 K/mm3 (0.0-0.4); Eosinophils % 3.9 % (0.1-12.0); Hematocrit 45.8 % (37.0-47.0); Hemoglobin 14.7 g/dL (12.2-16.2); Lymphocytes # 2.1 K/mm3 (0.7-4.5); Lymphocytes % 33.6 % (10-50); Mean Corpuscular Hemoglobin 28.7 pg (27.0-31.2); Mean Corpuscular Volume 89.8 fl (81-99); Mean Platelet Volume 7.8 fl (7.4-10.4); Monocytes # 0.3 K/mm3 (0.1-1.0); Monocytes % 5.1 % (1.7-9.3); Neutrophils # 3.6 K/mm3 (1.8-7.8); Neutrophils % 56.7 % (37.0-80.0); Platelet Count 312 K/mm3 (142-424); Red Cell Distribution Width 13.7 % (11.5-17.5); White Blood Count 6.3 K/mm3 (4.8-10.8)
[2020-01-24 09:58] LABS: Chloride 107 mmol/L (98-107); Sodium 138 mmol/L (136-145)
[2020-01-24 09:59] LABS: Potassium 4.5 mmoL/L (3.5-5.1)
[2020-01-24 10:01] LABS: Alanine Aminotransferase 15 U/L (12-78); Albumin Level 4.1 g/dl (3.5-5.0); Albumin/Globulin Ratio 1.8 (1.1-1.8); Alkaline Phosphatase 42 U/L (38-126); Anion Gap 10.5 mEq/L (5-15); Aspartate Amino Transferase 25 U/L (14-36); Bilirubin,Total 0.5 mg/dl (0.2-1.3); Blood Urea Nitrogen 12 mg/dl (7-17); Calcium 9.2 mg/dl (8.4-10.2); Carbon Dioxide 25 mmol/L (22.0-30.0); Cholesterol 178 mg/dl (140-200); Estimated Glomerular Filt Rate 91 ml/min (>60); GFR (African American) 111 ML/MIN (>60); Globulin 2.3 g/dL (1.3-3.2); Glucose 99 mg/dl (74-100); Total Protein,Serum 6.4 g/dl (6.3-8.2); Triglycerides 206 mg/dl (30-150); VLDL Cholesterol 41 mg/dL (0-40)
[2020-01-24 10:02] LABS: Chol/HDL Ratio 4.8 (1-3.5); HDL Cholesterol 37 mg/dl (40-60)
[2020-01-24 10:12] LABS: Direct LDL Cholesterol 101.03 mg/dL (100-129)
[2020-01-24 10:17] LABS: Triiodothryronine (T3) Uptake 33 % (23.5-40.5)
[2020-01-24 10:18] LABS: Free Thyroxine Index 2.6 ug/dL (5.93-13.13); T4 (Thyroxine) 7.8 ug/dl (5.53-11.0)
[2020-01-24 10:31] LABS: Thyroid Stimulating Hormone 0.99 uIU/mL (0.465-4.68)
[2020-01-25 10:27] LABS: FSH 3.3 mIU/mL (.); LH 5.8 mIU/mL (.)
== END ==
PROVIDERS: Visit Provider Nurse Practitioner Obstetrics & Gynecology
DX: Z12.31 Encounter for screening mammogram for malignant neoplasm of breast (principal); R53.82 Chronic fatigue, unspecified; R63.5 Abnormal weight gain
CPT/HCPCS: 36415; 77063; 77067; 80053; 80061; 82670; 83001; 83002; 84436; 84443; 84479; 85025

== ENCOUNTER → 2020-02-09 13:46 | Outpatient (CLI) | payer BC, SELFPAY ==
--- NOTE | 2020-02-09 13:47 | US_ITS ---
PROCEDURE: US BREAST LT COMPLETE CLINICAL INDICATION: abnormal xmg/ dense breast COMPARISON: US BREASTLT US breast LT complete from 02/17/2018 MG MM DIG SCREENING MAMM BI W/CAD from 01/24/2020 FINDINGS: There is an oval solid mass 5 o'clock position outer breast measuring 2.0 x 1.0 by 2.7 cm. It shows slightly heterogenic internal echogenicity. In addition there is a benign-appearing cystic lesion 8 o'clock position near the nipple measuring 0.7 x 0.3 by 0.6 cm. There are couple normal appearing nodes in the axilla. IMPRESSION: Solid somewhat heterogenic appearing mass likely a fibroadenoma however in view of the fact that it has more than doubled in size since the previous mammogram I would recommend follow-up biopsy which could be performed with ultrasound guidance BI-RADS category 4 Dictated by: Dr. Cole Meehan MD 02/16/2020 12:55 Dr. Cole Meehan MD in [place] 02/16/2020 12:55
== END ==
PROVIDERS: PCP Family Medicine; Visit Provider Nurse Practitioner Obstetrics & Gynecology
DX: R92.8 Other abnormal and inconclusive findings on diagnostic imaging of breast (principal)
CPT/HCPCS: 76641

== ENCOUNTER → 2020-02-29 09:36 | Outpatient (CLI) | payer BC, SELFPAY ==
--- NOTE | 2020-02-29 | MM_ITS ---
PROCEDURE: US MAMMOTOME BX LT CLINICAL INDICATION: Abnormal Mamm and US results Left breast nodule COMPARISON: MG MM DIG SCREENING MAMM BI W/CAD from 01/24/2020 US US BREAST LT COMPLETE from 02/09/2020 FINDINGS: Following obtaining informed consent and procedure under aseptic conditions and local anesthesia with 1 percent buffered lidocaine and deeper anesthesia with lidocaine mixed with epinephrine skin delfina was performed and mammotome needle inserted along the posterior aspect the nodule at 5 o'clock. Multiple mammotome biopsies were obtained and then a clip placed. The patient tolerated the procedure well without evidence of immediate complication. In the same setting, a cyst was aspirated at the 3 o'clock position with 21 gauge needle. No immediate complications. Pathology: Predominantly adipose tissue with a suggestion of fat necrosis. Benign breast parenchyma with focal fibroadenomatoid change. Negative for atypia or malignancy. Cytology: Negative for malignant cells IMPRESSION: Uneventful ultrasound-guided mammotome biopsy and cyst aspiration of the left breast showing benign findings. Recommend six-month mammographic and sonographic follow-up per routine protocol. Dictated by: Lai Tyson MD 03/08/2020 14:24 Lai Tyson MD in [place] 03/08/2020 14:24
== END ==
PROVIDERS: PCP Family Medicine; Visit Provider Nurse Practitioner Obstetrics & Gynecology
DX: R92.8 Other abnormal and inconclusive findings on diagnostic imaging of breast (principal); N63.23 Unspecified lump in the left breast, lower outer quadrant
CPT/HCPCS: 19083; 77065; C2618

== ENCOUNTER → 2020-04-01 14:28 | Outpatient (CLI) | payer BC, SELFPAY ==
[2020-04-01 16:31] LABS: Coronavirus 19 IgG Antibody Negative (Negative); Coronavirus 19 IgM Antibody Negative (Negative)
== END ==
PROVIDERS: Visit Provider Surgery
DX: Z01.818 Encounter for other preprocedural examination (principal); Z03.818 Encounter for observation for suspected exposure to other biological agents ruled out; D17.21 Benign lipomatous neoplasm of skin and subcutaneous tissue of right arm
CPT/HCPCS: 36415; 86328

== ENCOUNTER 2020-04-03 07:28 | Day surgery (SDC) | payer BC, SELFPAY ==
[2020-04-01 14:50] VITALS: BMI 31.4
[2020-04-03] VITALS (10 sets, daily range): BP systolic 101–119; BP diastolic 54–73; PULSE 68–87; RESP 16–18; TEMP 36.2–36.7; O2SAT 97–99
--- NOTE | 2020-04-03 08:07 | HMH.ANESCL ---
[facility] Anesthesia Checklist - Patient Identification Patient Identification: Arm Band, Verbal (Name & ) - Structural Data Admitted From: Home Planned Operative Procedure/s: Right forearm lipoma excision Consent for Planned Operative Procedure(s) Verified: Yes Verified Documents: Surgical Consent, History and Physical - NPO Status Verified Time NPO: 19:00 - Chart Verification Results Verified: CBC, BMP - Additional verifications Patient : No Anesthesia Reactions: No Hx Blood Transfusions: No Blood Transfusion Reaction: No - Airway Assessment C-Spine Mobility Assessed: Yes (MP 1, TMD 3) TMJ Mobility Assessed: Yes Dentition: Good Dentition (implants) - Neurological Assessment Level of Consciousness: Awake, Alert, Appropriate, Follows Commands Hx Seizures: No Numbness or tingling in extremities: No - Anesthesia Plan Anesthesia Risk discussed: Yes Anesthesia Plan: Verified ASA Class: II Anesthesia Type: General [facility] History I have reviewed the patient's past medical history: Yes Medical History: Reports:: Anxiety, Depression, Gastroesophageal Reflux Disease(GERD) Denies:: Cancer, Diabetes Mellitus Type 1, Diabetes Mellitus Type 2, Internal Pacemaker, MRSA, Seizures *Have you ever received a pneumonia vaccine?: No *Have you received a flu vaccine this season?: No Other Medical History: Denies: Blood Transfusion Reaction Comment:: obesity Anesthesia experience/problems:: None Laterality Cases: Bilateral: Tonsillectomy Other Surgeries: Yes: Appendectomy, Colonoscopy, , Hysterectomy-Partial, Tubal Ligation. No: Pacemaker Amputation: No Fractures: Yes (ANKLE,BACK,FINGERS,RIBS) - *Social History Last grade of school completed: Advanced degree Smoking Status: Current every day smoker Tobacco Type: cigarettes # Packs/Day (cigarettes): 1 Alcohol Intake: current Alcohol Intake Frequency:: holidays/special occasions only Substance Use Type: denies use *Occupational Status:: employed Housing: house Household Members: significant other, family *Travel in the last 8 weeks: None - Psychiatric History Pschychiatric History:: Reports:: Depression Family Hx:: Cancer
--- NOTE | 2020-04-03 09:13 | HMH.OPNOTE ---
Date of procedure: 04/03/20 Pre-op Diagnosis:: Right forearm lipoma Post-op Diagnosis:: Same Procedure performed:: Excision of right forearm lipoma (excisional length approximately 2.5 cm) with intermediate complexity closure Surgeon:: José Luis Jaeger MD [employer] PRINCIPAL:: Toño Garcia Anesthesia: LMA Estimated blood loss (mL): 2 Clinical Note:: Patient is a 45-year-old female recently seen in the office in consultation for breast imaging. She does have a previous history of lipomas. She also noted that she had a right forearm lipoma. She describes some discomfort in her right elbow. Patient desired surgical excision. It was explained to her that it was unlikely that the pain and tenderness in her right elbow was related to this distal subcutaneous lipoma. She understood and agreed to proceed. Plan was made for excision. Operative findings:: She had a very well-circumscribed subdermal, subcutaneous benign-appearing lipoma. Operative note:: Patient was taken to the operating room. She was positioned supine position. Anesthesia was induced via LMA. Right upper extremity was prepped and draped in standard surgical fashion. Lesion was marked with skin marker for incision longitudinally. Limited local anesthetic was infiltrated. Incision was made. Dissection was carried down through skin and dermis. Well-circumscribed lipomatous tissue was encountered. Using mostly blunt dissection this was dissected free from surrounding tissues and easily enucleated intact in its entirety. Limited dissection with electrocautery was used. It was sent off as a specimen. Local anesthetic was infiltrated. Several 3 oh deep dermal interrupted sutures were placed. Skin was closed with 4-0 Monocryl subcuticular fashion. Dressing was applied. Condition: stable Disposition: PACU Specimens:: Lipoma Complications:: None immediately apparent
--- NOTE | 2020-04-03 09:16 | P.PN_ITS ---
[facility] Anesthesia Record Part I Intake, IV Amount: 400 Estimated blood loss (mL): 5 Urine output (mL): 0 Blood Products used (#): none Blood Pressure: 101/56 SaO2: 97 Pulse Rate: 70 Respiratory Rate: 18 Temperature: 97.1 F Patient is:: Drowsy, Nasal O2, Stable Stable to PACU at:: 09:15
--- NOTE | 2020-04-03 10:18 | P.PN_ITS ---
[facility] Anesthesia Record Part II Discharge Time: 09:45 Destination: Surgical Day Care (OP Surgery) PACU nurse assessment reviewed?: Yes Patient Condition:: Good Anesthesia Complications:: None Swallowing reflex intact?: Yes Cyanosis?: No Blood Pressure: 103/62 Pulse Rate: 73 Temperature: 98.0 F Mental Status: Alert & Oriented Pain level:: 0 Nausea and/or vomitting:: None Intake, IV Amount: 35
== END 2020-04-03 10:56 | disposition home or self-care (01) ==
LOC: OR 07:29
PROVIDERS: PCP Nurse Practitioner; Visit Provider Surgery
PROC: (CPT 11403; principal; 2020-04-03 09:00)
DX: D17.21 Benign lipomatous neoplasm of skin and subcutaneous tissue of right arm (principal); F41.9 Anxiety disorder, unspecified; F32.9 Major depressive disorder, single episode, unspecified; K21.9 Gastro-esophageal reflux disease without esophagitis; Z90.49 Acquired absence of other specified parts of digestive tract; Z72.0 Tobacco use; Z80.9 Family history of malignant neoplasm, unspecified
CPT/HCPCS: 11403; 12031; 96374; J2405

== ENCOUNTER → 2020-04-29 15:54 | Outpatient (CLI) | payer BC, SELFPAY | PROVIDERS: PCP Nurse Practitioner; Visit Provider Nurse Practitioner | DX: Z20.822 Contact with and (suspected) exposure to COVID-19 (principal); U07.1 COVID-19; R52 Pain, unspecified | CPT/HCPCS: U0003 ==

== ENCOUNTER → 2020-08-06 16:49 | Outpatient (CLI) | payer BC, SELFPAY ==
--- NOTE | 2020-08-06 16:55 | XR_ITS ---
PROCEDURE: XR ELBOW RT MIN 3V CLINICAL INDICATION: RT ELBOW PAIN COMPARISON: No exams were available for comparison FINDINGS: No fracture or dislocation. No lytic or blastic change. There is normal mineralization. The joint spaces are well-preserved. No significant degenerative/arthritic changes. No erosive changes evident. Other findings:There is an area of lucency over the coronoid process on the lateral view. This is nonspecific and could even be due to a small subchondral cyst. IMPRESSION: No acute finding. Small nonspecific lucency at the coronoid process possibly due to small sub chondral cyst Dictated by: Lai Tyson MD 08/06/2020 17:21 Lai Tyson MD in [place] 08/06/2020 17:21
== END ==
PROVIDERS: PCP Nurse Practitioner Family; Visit Provider Nurse Practitioner Family
DX: M25.521 Pain in right elbow (principal)
CPT/HCPCS: 73080

== ENCOUNTER → 2020-08-29 13:43 | Outpatient (CLI) | payer BC, SELFPAY ==
--- NOTE | 2020-08-29 13:43 | US_ITS ---
PROCEDURE: MM DIG MAMM DX UNILAT LT CAD Digital Breast Tomosynthesis Included CLINICAL INDICATION: 6 month follow up on Lt. breast COMPARISON: MG SCBI MM Dig screening mamm BI w/CAD from 01/18/2018 MG DXBI MM Dig mamm BI DX w/CAD from 02/04/2018 MG MM DIG SCREENING MAMM BI W/CAD from 01/24/2020 US US BREAST LT COMPLETE from 02/09/2020 MG MM CLIP PLACEMENT LT from 02/29/2020 US US MAMMOTOME BX LT from 02/29/2020 US US BREAST LT COMPLETE from 08/29/2020 TECHNIQUE: Standard CC and MLO images and 3D Tomosynthesis was obtained. R2 CAD reviewed. FINDINGS: Average fibroglandular tissue. Previously noted nodule in the 3 o'clock position of left breast is no longer apparent. Biopsy clip is present at this region. There is a new nodule in the medial aspect of the left breast near the 9 o'clock position measuring approximately 8 mm. This appears cystic on ultrasound. Tomogram images also demonstrate a small nodule macro lobulated at approximately 6 mm in the medial aspect of the left breast. These are slightly more prominent from 01/24/2020. This may represent a small cluster of cyst. Left breast ultrasound: 1 o'clock hypoechoic nodule near the nipple at 4 mm. Previously noted dominant cyst at 3 o'clock is no longer apparent. There is a flat like appearing hypoechoic nodule at 3 o'clock at 1 by 0.3 cm and could represent previously aspirated cyst. Lipoma noted at 5 o'clock at 2.4 cm. At 9 o'clock there is an 8 x 4 mm cyst which may correspond to the new mammographic abnormality. At 10 o'clock near the nipple there is a 7 by 6 mm cyst which may correspond to the previously mentioned mammographic abnormality. This cyst is somewhat lobular. Continued follow-up is suggested of this region. IMPRESSION: Status post biopsy. Previously noted dominant nodule in the lateral left breast is no longer apparent. New nodule in the medial aspect of the left breast and slightly more prominent small macro lobulated nodule medially both appearing benign. Recommend continued six-month follow-up of both breasts along with left breast ultrasound. BI-RAD Category: 3 Probably Benign Finding Short Term Follow-Up FOLLOW-UP: 6M 6 Month Follow-up (A letter has been sent to the patient regarding results of the study.) Dictated by: Lai Tyson MD 09/06/2020 08:15 Lai Tyson MD in [place] 09/06/2020 08:15
== END ==
PROVIDERS: PCP Nurse Practitioner Family; Visit Provider Nurse Practitioner Obstetrics & Gynecology
DX: R92.8 Other abnormal and inconclusive findings on diagnostic imaging of breast (principal)
CPT/HCPCS: 76641; 77061; 77065; G0279

== ENCOUNTER 2020-09-13 14:23 | Outpatient (RCR) | payer BC, SELFPAY | END 2020-09-13 15:15 | disposition home or self-care (01) | LOC: OT 14:23 | PROVIDERS: Visit Provider Orthopaedic Surgery | DX: G56.01 Carpal tunnel syndrome, right upper limb (principal) | CPT/HCPCS: 97763 ==

== ENCOUNTER → 2020-12-03 11:54 | Outpatient (CLI) | payer BC, SELFPAY ==
--- NOTE | 2020-12-03 12:13 | XR_ITS ---
PROCEDURE: XR HIP RT 2-3V W/PELVIS CLINICAL INDICATION: PAIN IN LEFT AND RIGHT HIP, LOW BACK PAIN COMPARISON: CR XR HIP LT 2-3V W/PELVIS from 12/03/2020 FINDINGS: No fracture or dislocation. No lytic or blastic change. There is normal alignment. Minimal osteoarthritic changes are present involving the right hip with minimal spurring along the inferior aspect of the acetabulum. The left hip has an unremarkable appearance. Bilateral pelvic clips are present. IMPRESSION: Minimal osteoarthritic change right hip. Unremarkable left hip Dictated by: Lai Tyson MD 12/03/2020 14:11 Lai Tyson MD in [place] 12/03/2020 14:11
--- NOTE | 2020-12-03 12:13 | XR_ITS ---
PROCEDURE: XR LUMBAR SPINE MIN 4V CLINICAL INDICATION: PAIN IN LEFT AND RIGHT HIP, LOW BACK PAIN COMPARISON: No exams were available for comparison FINDINGS: Degenerative disc disease L2-L3 and L3-L4 with 3 mm retrolisthesis of L2 and L3. No fracture or dislocation. No lytic or blastic change. There is minimal thoracolumbar curvature convex left. There are surgical clips in the pelvic region on both sides. Other findings:None. IMPRESSION: Mild lumbar spondylosis. No acute finding Dictated by: Lai Tyson MD 12/03/2020 14:08 Lai Tyson MD in [place] 12/03/2020 14:08
[2020-12-03 12:56] LABS: Uric Acid 3.3 mg/dl (2.5-6.2)
[2020-12-03 13:02] LABS: C-Reactive Protein 0.4 mg/L (0-4)
[2020-12-03 14:17] LABS: Erythrocyte Sedimentation Rate 16 mm/hr (0-20)
[2020-12-04 08:21] LABS: RA Latex Turbid. <10.0 IU/mL (0.0-13.9)
[2020-12-04 16:24] LABS: Antinuclear Antibodies, IFA Negative (.)
== END ==
PROVIDERS: Visit Provider Nurse Practitioner Family
DX: M25.552 Pain in left hip (principal); M25.551 Pain in right hip; M54.5 Low back pain
CPT/HCPCS: 36415; 72110; 73502; 84550; 85651; 86038; 86140; 86431

== ENCOUNTER → 2021-01-21 16:51 | Outpatient (CLI) | payer BC, SELFPAY ==
--- NOTE | 2021-01-21 16:53 | MR_ITS ---
PROCEDURE: MR LUMBAR SPINE WO CON CLINICAL INDICATION: LOW BACK PAIN, NUMBNESS IN LEGS COMPARISON: CR XR LUMBAR SPINE MIN 4V from 12/03/2020 TECHNIQUE: Standard multiplanar multiecho sequences are performed without contrast. 3-D MIP and myelographic images are also rendered and reviewed FINDINGS: There is normal alignment. The spinal cord ends at the L1 level. L1-L2: Minimal bulging disc. L2-L3: Mild degenerative disc disease with mild bulging disc with a small broad-based right paracentral foraminal and lateral disc protrusion resulting in mild right lateral recess and foraminal narrowing. There is 2 mm retrolisthesis of L2 on L3. There is a small less than 1 cm hemangioma in L2 vertebral body on the left. L3-L4: Bulging disc with small foraminal lateral protrusion of the disc with mild bilateral foraminal narrowing. Mild facet and ligamentum hypertrophy. L4-5: Unremarkable. L5-S1: Unremarkable. No extruded herniated disc or canal stenosis. IMPRESSION: 1. L2-L3: Mild degenerative disc disease with mild bulging disc with a small broad-based right paracentral/foraminal and lateral disc protrusion/disc osteophyte complex resulting in mild right lateral recess and foraminal narrowing. There is 2 mm retrolisthesis of L2 on L3. 2. L3-L4: Bulging disc slightly eccentric toward the left with bilateral small foraminal/lateral protrusion of the disc with mild bilateral foraminal narrowing. Mild facet and ligamentum hypertrophy. 3. No extruded herniated disc or bony canal stenosis Dictated by: Lai Tyson MD 01/22/2021 10:03 Lai yTson MD in [place] 01/22/2021 10:03
== END ==
LOC: RAD 16:51
PROVIDERS: PCP Nurse Practitioner Family; Visit Provider Nurse Practitioner Family
DX: M54.50 Low back pain, unspecified (principal); R20.0 Anesthesia of skin
CPT/HCPCS: 72148; 76376

== ENCOUNTER → 2021-02-10 15:22 | Outpatient (CLI) | payer BC, SELFPAY ==
--- NOTE | 2021-02-10 15:26 | US_ITS ---
PROCEDURE: US EXTREMITY LT LIMITED CLINICAL INDICATION: LT AXILLA MASS Palpable area in the left axilla COMPARISON: US US BREAST LT COMPLETE from 08/29/2020 FINDINGS: Sonographic images obtained of the region indicated by the patient as the palpable abnormality demonstrate an echogenic well-circumscribed structure without vascularity measuring 2.3 centimeters by 1 centimeter abutting muscle. IMPRESSION: 2.3cm left axillary lipoma corresponding to palpable abnormality. Dictated by: Caro Timmons MD 02/12/2021 10:46 Caro Timmons MD in [place] 02/12/2021 10:46
== END ==
PROVIDERS: PCP Nurse Practitioner Family; Visit Provider Nurse Practitioner Family
DX: R22.32 Localized swelling, mass and lump, left upper limb (principal)
CPT/HCPCS: 76882

== ENCOUNTER → 2021-04-23 12:04 | Outpatient (CLI) | payer BC, SELFPAY | PROVIDERS: PCP Nurse Practitioner Family; Visit Provider Nurse Practitioner | DX: Z20.822 Contact with and (suspected) exposure to COVID-19 (principal) | CPT/HCPCS: C9803; U0003; U0005 ==

== ENCOUNTER → 2021-04-29 12:30 | Outpatient (CLI) | payer BC, SELFPAY | PROVIDERS: Visit Provider Nurse Practitioner | DX: Z20.822 Contact with and (suspected) exposure to COVID-19 (principal) | CPT/HCPCS: C9803; U0003; U0005 ==

== ENCOUNTER 2021-06-28 14:18 | Emergency (ER) | payer BC, SELFPAY ==
[2021-06-28 14:18] VITALS: BP 108/69; PULSE 83; RESP 16; TEMP 36.9; O2SAT 98; BMI 31.4
--- NOTE | 2021-06-28 15:02 | HMH.EDUTC ---
[facility] [place] Clinical Impression: Yeast infection of the skin Otitis media Qualifiers: Otitis media type: unspecified Laterality: left Qualified Code(s): H66.92 - Otitis media, unspecified, left ear Disposition: Home, Self-Care Condition on Discharge: Good Instructions: Middle Ear Infection, DI for Sinusitis, Amoxicillin and Clavulanic Acid, Yeast Infection-Skin Additional Instructions: *Monitor Temp, Over the counter Motrin or Tylenol as directed/as needed Tylenol every 4 hours and Motrin every 6 hours (as long as your family doctor has told you that you can take it) for fever or pain. and straight to ER if unable to lower temp less than 101.0 after medication given *Warm salt water gargles may help to soothe the throat *Throat Lozenges *Warm fluids like tea with honey may help to soothe the throat *Sleep elevated *Humidifier/Vaporizer *Flonase 2 sprays in each nostril daily but be aware that it may take 2-3 days before you notice improvement Take medication as prescribed Return if needed Follow up IMMEDIATELY for new or worsening symptoms or no Noticeable improvement over the next 48-72 hours. 911 for difficulty breathing or swallowing Prescriptions: Amoxicillin/Potassium Clav [Amox-Clav 875-125 mg Tablet] 1 tab PO BID #20 tab Transmission Status: Received by [id number] Fluticasone Propionate [Flonase 50mcg nasal spray 16gm] 1 spr NS DAILY #1 each Transmission Status: Received by [id number] methylPREDNISolone [Medrol 4mg tab] 4 mg PO DIRECTED #21 tab Transmission Status: Received by [id number] Nystatin [Nystatin Topical Powder 30GM*] 1 applicatio TP BID #30 gm Transmission Status: Received by [id number] Referrals: Karey Joaquin APRN [Primary Care Provider] - As needed Time of Disposition: 15:13 Medical Decision Making - Gustavo Inquiry Pt receiving controlled substance: No Gustavo was queried for this patient: No Vital Signs: 06/28/21 14:18 Temperature 98.4 F Temperature Source Oral Pulse Rate [Right] 83 Respiratory Rate 16 Blood Pressure [Right Arm] 108/69 L Blood Pressure Mean [Right Arm] 82 Blood Pressure Source [Right Arm] Automatic Cuff Blood Pressure Position [Right Arm] Sitting 02 Sat by Pulse Oximetry 98 Oxygen Delivery Method Room Air [facility] [place]PI - General Stated complaint: ear pain, rash Time Seen by Provider: 06/28/21 15:03 Mode of Arrival: Ambulatory Source of Information: Patient Limitations: No Limitations Description of Symptoms (Recalled from Triage Doc. by RN): pt c/o ear pain, headache, ringing in ears, congestion, cough HEENT Symptoms (Recalled from RN notes): Yes (ear pain, cough, congestion, cough) Resp Symptoms (Recalled from RN notes): No Skin Symptoms (Recalled from RN notes): No MS Symptoms (Recalled from RN notes): No Functional Status (Recalled from RN notes): na - History of Present Illness Provider Complaint: Patient states that she has been having sinus pain and pressure along with feeling of fullness and pain in left ear States that she feels like it has fluid it and is popping and cracking States that it hurts when she swallows and coughs States that also she has a rash under her breast and thinks it may be yeast - Related Data Home Medications Medication Instructions Recorded Confirmed phentermine 37.5 mg tablet 37.5 mg PO DAILY tab 03/11/20 09/13/20 Previous Rx's Medication Instructions Recorded estradiol 1 mg tablet 1 mg PO DAILY #90 tab 05/12/21 sertraline 50 mg tablet 50 mg PO DAILY #30 tab 06/16/21 Amoxicillin/Potassium Clav 1 tab PO BID #20 tab 06/28/21 [Amox-Clav 875-125 mg Tablet] Fluticasone Propionate [Flonase 1 spr NS DAILY #1 each 06/28/21 50mcg nasal spray 16gm] Nystatin [Nystatin Topical Powder 1 applicatio TP BID #30 gm 06/28/21 30GM*] methylPREDNISolone [Medrol 4mg 4 mg PO DIRECTED #21 tab 06/28/21 tab] Allergies Allergy/AdvReac Type Severity Flavia
[2021-06-28 15:36] VITALS: BP 108/69; PULSE 83; RESP 16; TEMP 36.9; O2SAT 98
== END 2021-06-28 15:37 | disposition home or self-care (01) ==
PROVIDERS: Emergency Provider Nurse Practitioner; PCP Nurse Practitioner Family
DX: H66.92 Otitis media, unspecified, left ear (principal); K21.9 Gastro-esophageal reflux disease without esophagitis; F32.A Depression, unspecified; F41.9 Anxiety disorder, unspecified; Z79.51 Long term (current) use of inhaled steroids; Z79.52 Long term (current) use of systemic steroids; Z79.890 Hormone replacement therapy; Z79.899 Other long term (current) drug therapy; Z88.2 Allergy status to sulfonamides; Z80.9 Family history of malignant neoplasm, unspecified
CPT/HCPCS: 99213; G0463

== ENCOUNTER → 2021-12-16 07:19 | Outpatient (CLI) | payer BC, SELFPAY | PROVIDERS: PCP Physician Assistant; Visit Provider Internal Medicine Gastroenterology | DX: Z01.812 Encounter for preprocedural laboratory examination (principal); Z20.822 Contact with and (suspected) exposure to COVID-19; Z13.810 Encounter for screening for upper gastrointestinal disorder; Z12.11 Encounter for screening for malignant neoplasm of colon | CPT/HCPCS: C9803; U0003; U0005 ==

== ENCOUNTER 2021-12-18 08:17 | Day surgery (SDC) | payer BC, SELFPAY ==
[2021-12-18 08:32] VITALS: BP 115/81; PULSE 77; RESP 18; TEMP 36.4; O2SAT 98; BMI 30.3
--- NOTE | 2021-12-18 08:45 | EXP.ANES.CKL ---
PFSH PFSH Medical History Anxiety Arthritis Attention Deficit Hyperactivity Disorder (ADHD) Bipolar disorder Colonoscopy planned Constipation Depression Gastroesophageal reflux disease History of gastroesophageal reflux (GERD) Hyperlipidemia Insomnia Normal esophagogastroduodenoscopy (EGD) Tonsillectomy planned Toxemia in Surgical History H/O exploratory laparotomy H/O: History of appendectomy History of hysterectomy Family History Other Family history of COPD (chronic obstructive pulmonary disease) Lung cancer Social History Smoking Status: Current every day smoker tobacco type: cigarettes packs per day: 1 years smoked: 20 second hand exposure: Yes alcohol intake: current substance use type: denies use current occupational status: employed Travel in the last 8 weeks: Inside the [place] household members: significant other and family housing: house 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 current occupational exposures/hazards: Yes caffeine: Yes [facility] Anesthesia Checklist Patient Identification Patient Identification: Arm Band and Verbal (Name & ) Structural Data Admitted From: Home Planned Operative Procedure/s: EGD/Colonoscopy Consent for Planned Operative Procedure(s) Verified: Yes NPO Status Verified Time NPO: 06:30 (Prep) Chart Verification Results Verified: CBC and BMP Additional verifications Anesthesia Reactions: No Hx Blood Transfusions: No Blood Transfusion Reaction: No Airway Assessment C-Spine Mobility Assessed: Yes TMJ Mobility Assessed: Yes Dentition: Good Dentition Neurological Assessment Level of Consciousness: Awake Hx Seizures: No Numbness or tingling in extremities: No Anesthesia Plan Anesthesia Risk discussed: Yes Anesthesia Plan: Verified ASA Class: II Anesthesia Type: MAC
[2021-12-18 08:58] VITALS: O2SAT 98
--- NOTE | 2021-12-18 09:17 | HMH.SCOPE ---
Procedure: Date: 12/18/21 Patient Date of :: 1975 Performing Provider:: Lesly Adams MD
[2021-12-18 09:19] VITALS: BP 110/66; PULSE 76; RESP 16; TEMP 36.2; O2SAT 94
--- NOTE | 2021-12-18 09:22 | HMH.SCOPE ---
Procedure: Date: 12/18/21 Patient Date of :: 1975 Procedure Performed:: EGD Indications:: GERD Performing Provider:: Lesly Adams MD Referring Provider:: ELLI Medina Sedation:: Propofol Procedure:: The gastroscope was gently passed through the incisoral orifice into the oral cavity and under direct visualization the esophagus was intubated. The endoscope was passed down the esophagus, through the stomach, and into the duodenum. Color, texture, mucosa, and anatomy of the esophagus, stomach, and duodenum were carefully examined with the scope. Findings:: Oropharynx: normal Esophagus: normal, small hiatus hernia EG Junction: intact at 40 cm Cardia: normal Fundus: normal Body: normal Antrum: normal Duodenal bulb: normal Duodenum (second and third portion): normal Impression: Normal EGD, small hiatus hernia Recommendations:: Conservative PPI therapy, weight loss Complications:: None Estimated blood obtained (mL): 0
[2021-12-18 09:29] VITALS: BP 124/74; PULSE 67; RESP 14; O2SAT 96
--- NOTE | 2021-12-18 09:29 | HMH.SCOPE ---
Procedure: Date: 12/18/21 Patient Date of :: 1975 Procedure Performed:: Colonoscopy Indications:: Constipation, screening Performing Provider:: Lesly Adams MD Referring Provider:: ELLI Medina Sedation:: Propofol Procedure:: After placing the patient in the left lateral decubitus position, the colonoscopy was gently inserted into the rectum and under direct visualization advanced to the cecum which was identified by transillumination in the right lower quadrant, identification of the ileocecal valve, appendiceal orifice, and cecal strap. Color, texture, mucosa, and anatomy of the colon were carefully examined with the scope. Findings:: Anal canal: normal Rectum: normal Sigmoid colon: normal without polyps or inflammatory changes Descending colon: normal without polyps or inflammatory changes Splenic flexure: normal Transverse colon: normal without polyps or inflammatory changes Hepatic flexure: normal Ascending colon: normal without polyps or inflammatory changes Cecum: normal Terminal ileum: not visualized Impression: Normal colonoscopy Recommendations:: Repeat exam in Ten years or so, sooner if clinically indicated Complications:: None Estimated blood obtained (mL): 0
[2021-12-18 09:39] VITALS: BP 133/83; PULSE 65; RESP 16; O2SAT 98
[2021-12-18 09:49] VITALS: BP 129/73; PULSE 72; RESP 16; TEMP 36.2; O2SAT 98
== END 2021-12-18 09:56 | disposition home or self-care (01) ==
PROVIDERS: PCP Physician Assistant; Visit Provider Internal Medicine Gastroenterology
PROC: 0DJ08ZZ Inspection of Upper Intestinal Tract, Via Natural or Artificial Opening Endoscopic (ICD-10-PCS; CPT 43235; principal; 2021-12-18 09:30)
DX: K21.9 Gastro-esophageal reflux disease without esophagitis (principal); K59.00 Constipation, unspecified; K44.9 Diaphragmatic hernia without obstruction or gangrene; Z72.0 Tobacco use
CPT/HCPCS: 45378; 43235; J2405; J2704

== ENCOUNTER → 2022-03-02 13:22 | Outpatient (CLI) | payer BC, SELFPAY ==
[2022-03-02 17:21] LABS: Basophils # 0.1 K/mm3 (0-0.2); Basophils % 1.2 % (0.1-2.0); Eosinophils # 0.4 K/mm3 (0.0-0.4); Eosinophils % 4.8 % (0.1-12.0); Hematocrit 42.8 % (37.0-47.0); Lymphocytes # 2.5 K/mm3 (0.7-4.5); Mean Corpuscular HGB Conc 32.8 g/dL (31.8-35.4); Mean Corpuscular Hemoglobin 29.8 pg (27.0-31.2); Mean Platelet Volume 8.8 fl (7.4-10.4); Monocytes # 0.5 K/mm3 (0.1-1.0); Monocytes % 6.1 % (1.7-9.3); Platelet Count 368 K/mm3 (142-424); Red Blood Count 4.71 M/mm3 (4.20-5.40); Red Cell Distribution Width 13.4 % (11.5-17.5); White Blood Count 7.3 K/mm3 (4.8-10.8)
[2022-03-02 17:25] LABS: Chloride 104 mmol/L (98-107); Potassium 3.9 mmoL/L (3.5-5.1); Sodium 137 mmol/L (136-145)
[2022-03-02 17:27] LABS: Alanine Aminotransferase 22 U/L (12-78); Alkaline Phosphatase 69 U/L (38-126); Anion Gap 11.9 mEq/L (5-15); Aspartate Amino Transferase 32 U/L (14-36); Blood Urea Nitrogen 11 mg/dl (7-17); Carbon Dioxide 25 mmol/L (22.0-30.0); Estimated Glomerular Filt Rate 108 ml/min (>60); GFR (African American) 130 ML/MIN (>60)
[2022-03-02 17:28] LABS: Albumin Level 4.1 g/dl (3.5-5.0); Albumin/Globulin Ratio 1.7 (1.1-1.8); Calcium 9.6 mg/dl (8.4-10.2); Chol/HDL Ratio 5.5 (1-3.5); Cholesterol 232 mg/dl (140-200); Globulin 2.4 g/dL (1.3-3.2); Glucose 106 mg/dl (74-100); HDL Cholesterol 42 mg/dl (40-60); Iron 57 ug/dL (37-170); Total Protein,Serum 6.5 g/dl (6.3-8.2); Triglycerides 360 mg/dl (30-150); VLDL Cholesterol 72 mg/dL (0-40)
[2022-03-02 17:38] LABS: Total Iron Binding Capacity 278 ug/dL (265-497)
[2022-03-02 17:39] LABS: Bilirubin,Total < 0.1 mg/dl (0.2-1.3); Direct LDL Cholesterol 109.97 mg/dL (100-129)
[2022-03-02 17:45] LABS: 25-OH Vitamin D, Total 39.2 ng/mL (30-100)
[2022-03-02 17:59] LABS: Thyroid Stimulating Hormone 1.71 uIU/mL (0.465-4.68)
[2022-03-02 18:11] LABS: Erythrocyte Sedimentation Rate 23 mm/hr (0-20)
[2022-03-02 19:29] LABS: Vitamin B12 699 pg/mL (239-931)
[2022-03-02 19:38] LABS: Folate 7.95 ng/mL
[2022-03-04 08:44] LABS: RA Latex Turbid. <10.0 IU/mL (<14.0)
[2022-03-04 13:50] LABS: Anti-Centromere B Antibodies <0.2 AI (0.0-0.9); Anti-DNA (DS) Ab Qn 1 IU/mL (0-9); Anti-Jo-1 <0.2 AI (0.0-0.9); Anti-Smith Antibody <0.2 AI (0.0-0.9); Antichromatin Antibodies <0.2 AI (0.0-0.9); Antiscleroderma-70 Antibodies <0.2 AI (0.0-0.9); RNP Antibodies <0.2 AI (0.0-0.9); Sjogren's Anti-SS-A <0.2 AI (0.0-0.9); Sjogren's Anti-SS-B <0.2 AI (0.0-0.9)
[2022-03-05 00:07] LABS: Anti-Cyclic Citrullinated Pept 1 units (0-19)
== END ==
LOC: LAB.DROPOF 03-17 13:24
PROVIDERS: PCP Physician Assistant; Visit Provider Physician Assistant
DX: M79.2 Neuralgia and neuritis, unspecified (principal); M25.50 Pain in unspecified joint
CPT/HCPCS: 80053; 80061; 82306; 82607; 82728; 82746; 83540; 83550; 84436; 84443; 85025; 85651; 86140; 86200; 86225; 86235; 86431

== ENCOUNTER → 2022-03-18 16:40 | Outpatient (CLI) | payer BC, SELFPAY | PROVIDERS: PCP Physician Assistant; Visit Provider Physician Assistant | DX: M54.50 Low back pain, unspecified (principal); B96.1 Klebsiella pneumoniae [K. pneumoniae] as the cause of diseases classified elsewhere | CPT/HCPCS: 87086; 87088; 87186 ==

== ENCOUNTER → 2022-03-19 15:15 | Outpatient (CLI) | payer BC, SELFPAY ==
--- NOTE | 2022-03-19 15:18 | MM_ITS ---
PROCEDURE INFORMATION: Exam: MG Bilateral Screening 3D Mammography Exam date and time: 03/19/2022 3:09 PM Age: 47 years old Clinical indication: Screening. Recommended for six-month follow-up sonography, from 09/06/2020. TECHNIQUE: Imaging protocol: Bilateral Screening tomosynthesis and 2D mammography including computer-aided detection (CAD) when performed. COMPARISON: 1. MG MM DIG MAMM DX UNILAT LT CAD 08/29/2020 1:50 PM 2. MG MM CLIP PLACEMENT LT 02/29/2020 11:30 AM 3. MG MM DIG SCREENING MAMM BI W/CAD 01/24/2020 9:00 AM 4. MG DXBI MM Dig mamm BI DX w/CAD 02/04/2018 3:24 PM FINDINGS: MAMMOGRAPHY: Breast composition: There are scattered areas of fibroglandular density. Mass: Oval 1.0 cm mass in the left upper outer quadrant posterior 3rd. Architectural distortion: None. Calcifications: No suspicious calcifications. Asymmetric density: None. Skin thickening: None. Axillary adenopathy: None. Other findings: Left biopsy clip. IMPRESSION: Patient will be recalled for bilateral sonography, for sonographic evaluation of mass in the left upper outer breast as well as follow-up to 09/06/2020 sonography report. ASSESSMENT: BI-RADS Category 0: Incomplete- Need Additional Imaging Evaluation and/or Prior Mammograms for Comparison
== END ==
PROVIDERS: PCP Physician Assistant; Visit Provider Nurse Practitioner Obstetrics & Gynecology
DX: Z12.31 Encounter for screening mammogram for malignant neoplasm of breast (principal)
CPT/HCPCS: 77063; 77067

== ENCOUNTER → 2022-03-24 12:58 | Outpatient (CLI) | payer BC, SELFPAY | PROVIDERS: PCP Physician Assistant; Visit Provider Physician Assistant | DX: M25.552 Pain in left hip (principal); M25.551 Pain in right hip ==

== ENCOUNTER → 2022-03-30 14:44 | Outpatient (CLI) | payer BC, SELFPAY ==
[2022-03-30 15:45] VITALS: PULSE 59; PULSE 62
== END ==
LOC: RT 14:44
PROVIDERS: PCP Physician Assistant; Visit Provider Physician Assistant
DX: R06.09 Other forms of dyspnea (principal); Z72.0 Tobacco use
CPT/HCPCS: 94060; 94640; 94727; 94729

== ENCOUNTER → 2022-05-04 14:34 | Outpatient (CLI) | payer BC, SELFPAY ==
--- NOTE | 2022-05-04 14:44 | XR_ITS ---
FINAL REPORT CLINICAL HISTORY: cough FINDINGS: PA and lateral views of the chest are obtained. There is no prior exam for comparison. The cardiac and mediastinal silhouettes are within normal limits. The lungs are clear. There is no pleural effusion, pneumothorax, or acute osseous abnormality. IMPRESSION: No radiographic evidence of acute cardiac or pulmonary disease. Reviewed, Interpreted and Dictated by Zully Burns MD Transcribed by Sol Bustamante Authenticated and . [facility]
== END ==
PROVIDERS: PCP Physician Assistant; Visit Provider Student in an Organized Health Care Education/Training Program
DX: R05.9 Cough, unspecified (principal); N39.0 Urinary tract infection, site not specified; B96.1 Klebsiella pneumoniae [K. pneumoniae] as the cause of diseases classified elsewhere
CPT/HCPCS: 71046; 87086; 87088; 87186; C9803; U0003; U0005

== ENCOUNTER → 2022-05-15 15:20 | Outpatient (CLI) | payer BC, SELFPAY ==
--- NOTE | 2022-05-15 15:25 | US_ITS ---
PROCEDURE INFORMATION: Exam: US Right Breast, Complete US Left Breast, Complete Exam date and time: 05/15/2022 3:59 PM Age: 47 years old Clinical indication: Right sonography follow up to 02/17/2017 sonography. Recent mammogram 03/19/2022. TECHNIQUE: Imaging protocol: Complete ultrasound of all four quadrants of the Right breast and the retroareolar regions, including ultrasound of the axilla when performed. Complete ultrasound of all four quadrants of the Left breast and the retroareolar regions, including ultrasound of the axilla when performed. COMPARISON: MG MM DIG SCREENING MAMM BI W/CAD 03/19/2022 3:09 PM BREASTRT US breast RT complete 02/17/2018 3:46 PM FINDINGS: Breast: Bilateral sonography, all 4 quadrants, retroareolar and axilla. Oval hypoechoic avascular masses, more likely complicated cysts, at 3 o'clock 1 cm from the nipple measuring 0.3 x 0.3 x 0.1 cm, at 5 o'clock 4 cm from the nipple measuring 0.3 x 0.3 x 0.2 cm, at 9 o'clock measuring 0.5 x 0.3 x 0.4 cm, at 10 o'clock 7 cm from the nipple measuring 0.5 x 0.4 x 0.5 cm (which may be decrease in size with new internal echoes, compared to simple 1.4 cm cyst on 02/17/2018). A few scattered subcentimeter cysts, sonographically unremarkable right axillary lymph node. IMPRESSION: Probably benign cystic changes, suggest six-month follow-up targeted right sonography at 3, 5, 9, and 10 o'clock, unless otherwise clinically indicated. ASSESSMENT: BI-RADS Category 3: Probably benign
--- NOTE | 2022-05-15 15:25 | US_ITS ---
PROCEDURE INFORMATION: Exam: US Left Breast, Complete Exam date and time: 05/15/2022 4:17 PM Age: 47 years old Clinical indication: Recall on the basis of screening mammogram 03/19/2022 for further evaluation of oval 1.0 cm mammographic mass in the left upper outer quadrant as well as follow-up to sonography from 08/29/2020 (reported 09/06/2020). TECHNIQUE: Imaging protocol: Complete ultrasound of all four quadrants of the Left breast and the retroareolar regions, including ultrasound of the axilla when performed. COMPARISON: US BREAST LT COMPLETE 08/29/2020 2:50 PM US BREAST LT COMPLETE 02/09/2020 2:28 PM FINDINGS: Breast: Left sonography, all 4 quadrants, retroareolar and axilla. At 2 o'clock 3 cm from the nipple, simple cyst measuring 0.5 x 0.5 x 0.2 cm. At 3 o'clock 3 cm from the nipple, oval hypoechoic mass, more likely a complicated cyst, measuring 0.6 x 0.2 x 0.3 cm, which likely corresponds to the finding annotated at 3 o'clock outer on 08/29/2020, which measured 0.8 x 0.4 x 1.1 cm. At 3 o'clock 4 cm from the nipple, oval hypoechoic mass, more likely complicated cyst measuring 0.6 x 0.7 x 0.4 cm. At 5 o'clock 5 cm from the nipple, isoechoic avascular masslike area or island breast tissue measuring 2.8 x 2.9 x 1.3 cm, with history of biopsied area, which measured 2.3 x 1.0 by 2.4 cm on 08/29/2020. At 9 o'clock, no findings annotated. At 10 o'clock 2 cm from the nipple, simple cyst measuring 0.3 cm. Sonographically unremarkable left axillary lymph node. IMPRESSION: No sonographic correlate for new mammographic 1.0 cm mass in the upper outer quadrant 11-12 cm from the nipple thus patient to be recalled for targeted left ultrasound in the upper outer quadrant 11-12 cm from the nipple. Benign-appearing graphic cystic and prior biopsy site demonstrated. ASSESSMENT: BI-RADS Category 0: Incomplete- Need Additional Imaging Evaluation and/or Prior Mammograms for Comparison
== END ==
PROVIDERS: PCP Physician Assistant; Visit Provider Nurse Practitioner Obstetrics & Gynecology
DX: N60.11 Diffuse cystic mastopathy of right breast (principal); N63.20 Unspecified lump in the left breast, unspecified quadrant
CPT/HCPCS: 76641

== ENCOUNTER → 2022-08-25 11:20 | Outpatient (CLI) | payer BC, SELFPAY ==
[2022-08-25 14:21] LABS: Basophils % 0.5 % (0.1-2.0); Eosinophils # 0.3 K/mm3 (0.0-0.4); Eosinophils % 4.7 % (0.1-12.0); Hematocrit 39.7 % (37.0-47.0); Hemoglobin 13.2 g/dL (12.2-16.2); Lymphocytes # 2.2 K/mm3 (0.7-4.5); Lymphocytes % 32.6 % (10-50); Mean Corpuscular HGB Conc 33.3 g/dL (31.8-35.4); Mean Corpuscular Hemoglobin 29.8 pg (27.0-31.2); Mean Corpuscular Volume 89.4 fl (81-99); Mean Platelet Volume 9.4 fl (7.4-10.4); Monocytes # 0.5 K/mm3 (0.1-1.0); Monocytes % 7.6 % (1.7-9.3); Neutrophils # 3.7 K/mm3 (1.8-7.8); Neutrophils % 54.6 % (37.0-80.0); Platelet Count 281 K/mm3 (142-424); Red Blood Count 4.44 M/mm3 (4.20-5.40); Red Cell Distribution Width 13.5 % (11.5-17.5); White Blood Count 6.8 K/mm3 (4.8-10.8)
[2022-08-25 14:26] LABS: Alanine Aminotransferase 24 U/L (12-78); Albumin Level 3.7 g/dl (3.5-5.0); Albumin/Globulin Ratio 1.7 (1.1-1.8); Alkaline Phosphatase 63 U/L (38-126); Anion Gap 14.1 mEq/L (5-15); Aspartate Amino Transferase 31 U/L (14-36); Bilirubin,Total 0.4 mg/dl (0.2-1.3); Blood Urea Nitrogen 14 mg/dl (7-17); Calcium 8.5 mg/dl (8.4-10.2); Carbon Dioxide 23 mmol/L (22.0-30.0); Chloride 102 mmol/L (98-107); Chol/HDL Ratio 3.8 (1-3.5); Cholesterol 171 mg/dl (140-200); Estimated Glomerular Filt Rate 108 ml/min (>60); GFR (African American) 130 ML/MIN (>60); Globulin 2.2 g/dL (1.3-3.2); Glucose 97 mg/dl (74-100); HDL Cholesterol 45 mg/dl (40-60); Potassium 4.1 mmoL/L (3.5-5.1); Sodium 135 mmol/L (136-145); Total Protein,Serum 5.9 g/dl (6.3-8.2); Triglycerides 305 mg/dl (30-150); VLDL Cholesterol 61 mg/dL (0-40)
[2022-08-25 14:37] LABS: Direct LDL Cholesterol 73.27 mg/dL (100-129)
[2022-08-25 14:39] LABS: 25-OH Vitamin D, Total 46.2 ng/mL (30-100)
[2022-08-25 14:56] LABS: Thyroid Stimulating Hormone 0.73 uIU/mL (0.465-4.68)
[2022-08-25 15:16] LABS: Vitamin B12 468 pg/mL (239-931)
[2022-08-27 11:26] LABS: LH 32.7 mIU/mL (.); Testosterone,Total 22 ng/dL (4-50)
[2022-08-27 12:14] LABS: FSH 33.4 mIU/mL (.)
[2022-08-31 15:09] LABS: Estrogen 284 pg/mL (.)
[2022-09-05 20:21] LABS: Anti Mullerian Hormone (AMH) <0.015
== END ==
PROVIDERS: PCP Physician Assistant; Visit Provider Physician Assistant
DX: F90.9 Attention-deficit hyperactivity disorder, unspecified type (principal); E66.9 Obesity, unspecified; Z68.31 Body mass index [BMI] 31.0-31.9, adult; Z79.899 Other long term (current) drug therapy
CPT/HCPCS: 80053; 80061; 82306; 82397; 82607; 82672; 83001; 83002; 84403; 84443; 85025

== ENCOUNTER → 2022-11-12 15:33 | Outpatient (CLI) | payer BC, SELFPAY ==
--- NOTE | 2022-11-12 15:33 | US_ITS ---
PROCEDURE INFORMATION: Exam: US Right Breast, Complete US Left Breast, Complete MG Left Diagnostic Breast Tomosynthesis Exam date and time: 11/12/2022 3:32 PM Age: 47 years old Clinical indication: Short-term radiographic followup; Left breast; mass TECHNIQUE: Imaging protocol: Complete ultrasound of all four quadrants of the right breast and the retroareolar regions, including ultrasound of the axilla when performed. Complete ultrasound of all four quadrants of the left breast and the retroareolar regions, including ultrasound of the axilla when performed. Left Diagnostic tomosynthesis and 2D mammography including computer-aided detection (CAD) when performed. Unilateral or bilateral exam. COMPARISON: 1. MG MM DIG SCREENING MAMM BI W/CAD 03/19/2022 3:09 PM 2. MG MM DIG MAMM DX UNILAT LT CAD 08/29/2020 1:50 PM FINDINGS: MAMMOGRAPHY: The breast is heterogeneously dense, which may obscure small masses. There is no stellate mass, architectural distortion or suspicious microcalcifications to suggest malignancy. Previously noted mass in the posterior left upper outer quadrant is no longer visualized. No skin thickening or axillary adenopathy. ULTRASOUND: Sonographic images of both breasts including the retroareolar regions, all 4 quadrants and the axilla do not demonstrate any solid masses with the exception of a stable to slightly smaller previously biopsied mass in the left 5 o'clock axis 5 cm from the nipple currently measuring 2.4 x 2.6 x 0.9 cm.. Minimal subcentimeter cystic change is present bilaterally. No architectural distortion or acoustical shadowing. No skin thickening or axillary adenopathy. IMPRESSION: No mammographic or sonographic evidence of malignancy. Annual bilateral mammographic screening is recommended in March 2023 unless otherwise clinically indicated. ASSESSMENT: BI-RADS Category 2: Benign
== END ==
PROVIDERS: PCP Physician Assistant; Visit Provider Nurse Practitioner Obstetrics & Gynecology
DX: R92.8 Other abnormal and inconclusive findings on diagnostic imaging of breast (principal)
CPT/HCPCS: 76641; 77061; 77065; G0279

== ENCOUNTER → 2023-03-24 14:46 | Outpatient (CLI) | payer BC, SELFPAY ==
[2023-04-04 23:32] LABS: Nicotine <1.0
== END ==
LOC: LAB 14:47
PROVIDERS: PCP Physician Assistant; Visit Provider Orthopaedic Surgery
DX: F17.210 Nicotine dependence, cigarettes, uncomplicated (principal); Z01.812 Encounter for preprocedural laboratory examination
CPT/HCPCS: 36415; 80323

== ENCOUNTER 2023-04-21 06:52 | Outpatient (CLI) | payer BC, SELFPAY ==
[2023-04-21 22:32] LABS: Amphetamine/Metha Screen,Urine Positive ng/ml (<1000)
[2023-04-21 22:33] LABS: Cannabinoid Screen,Urine Positive ng/ml (<50); Cocaine Screen,Urine Negative ng/ml (<300)
[2023-04-21 22:34] LABS: Opiate Screen,Urine Negative ng/ml (<300)
[2023-04-21 22:35] LABS: Phencyclidine Screen,Urine Negative ng/ml (<25)
[2023-04-21 23:08] LABS: Barbiturates Screen,Urine Negative ng/ml (<200); Benzodiazepines Screen,Urine Negative ng/ml (<200); Methadone Screen,Urine Negative ng/ml (<300)
== END 2023-04-21 23:59 ==
LOC: LAB.DROPOF 04-22 06:52
PROVIDERS: PCP Physician Assistant; Visit Provider Physician Assistant
DX: F90.9 Attention-deficit hyperactivity disorder, unspecified type (principal)
CPT/HCPCS: 80307

== ENCOUNTER 2023-06-08 15:51 | Emergency (ER) | payer BC, SELFPAY ==
[2023-06-08 15:56] VITALS: BP 138/73; PULSE 88; RESP 20; TEMP 37.2; O2SAT 97; BMI 29.0
[2023-06-08 16:00] VITALS: BP 119/76; PULSE 96; RESP 20; O2SAT 97
--- NOTE | 2023-06-08 16:07 | ED_ITS ---
I was consulted by the SAMANTHA, and we discussed the complexity of the problems being addressed. I approved the treatment and management plan for this patient's care in the emergency department, thus performing a substantive portion of the medical decision making. Zach Albert MD, PETERSON, FACE Discharge Plan Disposition Patient Disposition: Home, Self-Care Condition: Good Prescriptions Prescriptions: New cephalexin 500 mg capsule 500 mg PO BID 5 Days Qty: 10 0RF No Action gabapentin [Neurontin] 100 mg capsule 100 mg PO BID Qty: 60 2RF tramadol 50 mg tablet 50 mg PO Q6H PRN dextroamphetamine-amphetamine [Adderall XR] 30 mg capsule,extended release 24hr 30 mg PO DAILY Qty: 30 0RF minoxidil 2.5 mg tablet 2.5 mg PO DAILY spironolactone 100 mg tablet 100 mg PO DAILY estradiol 1 mg tablet See Rx Instructions .ROUTE .COMPLEX Qty: 90 4RF Dose Instruction: TAKE ONE TABLET BY MOUTH EVERY DAY Rx Instructions: TAKE ONE TABLET BY MOUTH EVERY DAY sertraline 50 mg tablet See Rx Instructions .ROUTE .COMPLEX Qty: 30 5RF Dose Instruction: TAKE ONE TABLET BY MOUTH EVERY DAY FOR depression Rx Instructions: TAKE ONE TABLET BY MOUTH EVERY DAY FOR depression atorvastatin 10 mg tablet See Rx Instructions .ROUTE .COMPLEX Qty: 90 3RF Dose Instruction: TAKE ONE TABLET BY MOUTH EVERY DAY Rx Instructions: TAKE ONE TABLET BY MOUTH EVERY DAY diclofenac sodium 75 mg tablet,delayed release (DR/EC) See Rx Instructions .ROUTE .COMPLEX Qty: 60 2RF Dose Instruction: TAKE ONE TABLET BY MOUTH TWICE DAILY --TAKE WITH FOOD-- Rx Instructions: TAKE ONE TABLET BY MOUTH TWICE DAILY --TAKE WITH FOOD-- quetiapine 25 mg tablet See Rx Instructions .ROUTE .COMPLEX Qty: 30 2RF Dose Instruction: TAKE ONE TABLET BY MOUTH EVERY DAY AT BEDTIME Rx Instructions: TAKE ONE TABLET BY MOUTH EVERY DAY AT BEDTIME pantoprazole 40 mg tablet,delayed release (DR/EC) See Rx Instructions .ROUTE .COMPLEX Qty: 30 2RF Dose Instruction: TAKE ONE TABLET BY MOUTH EVERY DAY Rx Instructions: TAKE ONE TABLET BY MOUTH EVERY DAY Caplyta 42 mg capsule 42 mg PO DAILY Qty: 30 2RF ondansetron 8 mg tablet,disintegrating 8 mg PO Q12H PRN (Reason: nausea and vomiting) Qty: 30 0RF Referrals Follow up/Referrals: Diana Ivory PA [Primary Care Provider] - See instructions Activity Restrictions/Add. Instructions Additional Instructions/Restrictions: Please keep the wound dry and covered but with a nonocclusive dressing such as gauze. After day 2 you can take the dressing down and the packing out. Just wash with soap and water. Cover with nonocclusive dressing as needed till wound heals. Turn if there is any signs of infection including redness drainage increased pain swelling. Discharge ED Provider: Zach Albert General Adult HPI General Chief complaint: Skin/Abscess/Foreign Body Stated complaint: poss fob LT hand Time Seen by Provider: 06/08/23 16:07 Mode of Arrival: Ambulatory Source of Information: Patient Limitations: No Limitations Description of Symptoms (Recalled from ER Triage Doc. by RN): LEFT HAND FOREIGN OBJECT History of Present Illness HPI narrative: She reports approximately 3 weeks ago she was clearing some debris from her property and felt like she might of gotten stuck in her left hand with some unknown object. Related Data Home Medications Medication Instructions Recorded Confirmed minoxidil 2.5 mg tablet 2.5 mg PO DAILY 10/28/22 04/21/23 spironolactone 100 mg tablet 100 mg PO DAILY 10/28/22 04/21/23 tramadol 50 mg tablet 50 mg PO Q6H PRN 04/21/23 04/21/23 Previous Rx's Medication Instructions Recorded estradiol 1 mg tablet See Rx Instructions .Route 06/08/22 .COMPLEX #90 tabs sertraline 50 mg tablet See Rx Instructions .Route 12/22/22 .COMPLEX #30 tabs gabapentin 100 mg capsule 100 mg PO BID #60 caps 12/25/22 (Neurontin) atorvastatin 10 mg tablet See Rx Instructions .Route 03/04/23 .COMPLEX #90 tabs diclofenac sodium 75 mg See Rx Instructions .Route 03/29/23 tablet,delayed release .COMPLEX #60 tabs dextroamphetamine-amphetamine ER 30 mg PO DAILY #30 caps 04/22/23 30 mg 24hr capsule,extend release (Adderall XR) pantoprazole 40 mg tablet,delayed See Rx Instructions .Route 04/30/23 release .COMPLEX #30 tabs quetiapine 25 mg tablet See Rx Instructions .Route 04/30/23 .COMPLEX #30 tabs lumateperone 42 mg capsule 42 mg PO DAILY #30 caps 05/06/23 (Caplyta) ondansetron 8 mg disintegrating 8 mg PO Q12H PRN nausea and 05/18/23 tablet vomiting #30 tabs cephalexin 500 mg capsule 500 mg PO BID 5 days #10 caps 06/08/23 Allergies Allergy/AdvReac Type Severity Reaction Status Date / Time Sulfa (Sulfonamide Allergy Unknown Verified 04/21/23 16:25 Antibiotics) [SULFA (SULFONAMIDE ANTIBIOTICS)] [facility] Disclaimer: The information contained in this section may have been updated after the patient was seen, as this information can be updated by other users. Medical History Anxiety Arthritis Attention Deficit Hyperactivity Disorder (ADHD) Bipolar disorder Colonoscopy planned Constipation Depression Gastroesophageal reflux disease History of gastroesophageal reflux (GERD) Hyperlipidemia Insomnia Normal esophagogastroduodenoscopy (EGD) Tonsillectomy planned Toxemia in Surgical History H/O exploratory laparotomy H/O: History of appendectomy History of hysterectomy History of tonsillectomy and adenoidectomy Family History Other Family history of COPD (chronic obstructive pulmonary disease) Lung cancer Social History Smoking Status: Former smoker tobacco type: cigarettes packs per day: 1 years smoked: 20 second hand exposure: Yes alcohol intake: current substance use type: denies use current occupational status: employed Travel in the last 8 weeks: Inside the [place] household members: significant other and family housing: house 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 current occupational exposures/hazards: Yes caffeine: Yes ROS Obtained: Yes Systems reviewed as appropriate & no additional complaints except as documented Physical Exam General General appearance: alert and anxious (Very anxious) Respiratory Respiratory exam: Present accessory muscle use Cardiovascular Cardiovascular exam: Present regular rate, normal rhythm, +S1 and +S2 Extremities Exam Extremities exam: Present normal inspection, full ROM and other (With exception of the skin exam below) Neurological Exam Neurological exam: Present alert and oriented X3 Psychiatric Psychiatric exam: Present anxious Skin Skin exam: Present other (On the dorsal aspect of the left hand in the interdigital space between the first and second fingers patient has a fresh linear scratch that the patient admits that she made with a pin. There is no erythema induration fluctuance edema. I cannot palpate any particular foreign body. She is neurovas) Medical Decision Making Gustavo Inquiry Pt receiving controlled substance: No Vital Signs: 06/08/23 15:56 06/08/23 16:00 06/08/23 16:30 Temperature 99 F Temperature Source Oral Pulse Rate 96 H 80 Pulse Rate [Right Radial] 88 Respiratory Rate 20 20 20 Blood Pressure 119/76 135/79 Blood Pressure [Right Arm] 138/73 Blood Pressure Mean 90 93 Blood Pressure Mean [Right Arm] 94 02 Sat by Pulse Oximetry 97 97 98 Oxygen Delivery Method Room Air Orders (Tests/Meds): ED MEDICATIONS Discontinued Medications Generic Name Dose Route Start Last Admin Trade Name Freq PRN Reason Stop Dose Admin Cocaine HCl 1 ml 06/08/23 16:22 06/08/23 16:46 Cocaine 4% Topical Soln 4ml Bottle TP 06/08/23 16:23 1 ml ONCE ONE Administration Epinephrine HCl 1 mg 06/08/23 16:22 06/08/23 16:46 Epinephrine 1 Mg/Ml Ampul TP 06/08/23 16:23 1 mg ONCE ONE Administration Lidocaine HCl 1 ml 06/08/23 16:22 06/08/23 16:46 Lidocaine 2% Urojet 10ml TP 06/08/23 16:23 1 ml ONCE ONE Administration Lidocaine/Epinephrine 10 ml 06/08/23 17:13 Lidocaine 1% W/Epi 1:100,000 20ml Vial SQ 06/08/23 17:14 ONCE ONE Medical Decision Narrative: In summary patient is a [age, sex] who presents to the emergency department for evaluation of [complaint]. Patient is [hemodynamically stable/unstable] upon arrival, [febrile/afebrile]. [Unremarkable physical exam, nonfocal exam versus focal remarkable exam]. Differential diagnosis includes [DDx]. Initial workup will be conducted with [hematologic labs, imaging, respiratory swab, describe workup]. Initial interventions include [crystalloid bolus, medications, p.o. challenge, etc.] initial workup reviewed by me [hematologic labs are remarkable for... Imaging remarkable for... Urinalysis remarkable for]. Upon repeat evaluation [patient had acceptable resolution of symptoms, had persistent pain for which additional interventions were conducted (describe interventions), tolerated p.o., was ambulatory, etc.]. Given this [patient is appropriate for discharge at this time and will be discharged with a prescription for... The case was discussed with hospital medicine regarding management and they will admit the patient their service for continued evaluation at this time... Etc.] Places where you can increase complexity: I informally interpreted the patient's chest x-ray or CT read and is remarkable for... Documenting what the compliance monitor shows with rate and rhythm Consideration of test but deferring. Ex: I considered chest x-ray on this patient however given that they have no oxygen requirement and are clear to auscultation all lung jerez will be deferred. Social determinants of health: Given that patient is undomiciled increases complexity. Given that patient has polysubstance abuse compounds all aspects of care Procedures Risk/Benefits of Procedure(s) Were Explained: Yes Foreign Body Removal Time Out Performed: Yes Site: left and hand (Dorsal aspect in the first and second interdigital space) Description of foreign body: other (Wood splinter) Sedation/Analgesia: none (10 cc of lidocaine with epinephrine infused subcutaneously along with LAC) Technique: incision made to facilitate removal (After sterile prep and drape patient was anesthetized topically and then infiltrated subcutaneously. Incision made with a #11 blade along the suspected path of the foreign body. After incision the 7 mm woody foreign body popped out of the skin. No pus pocket or deeper abscess wound was explored. ) Confirmed by:: direct visualization Complications: none Post-procedure exam: awake, alert Neurovascular: normal distal pulse and normal capillary fill Critical Care Critical Care Time Critical Care Time: No
--- NOTE | 2023-06-08 16:15 | PC.NURSE ---
MARILYN DESOUZA AT BEDSIDE
[2023-06-08 16:30] VITALS: BP 135/79; PULSE 80; RESP 20; O2SAT 98
[2023-06-08] MEDS: COCAINE 4% TOPICAL SOLN 4ML BOTTLE 1 ML TP (16:46)
[2023-06-08] MEDS: EPINEPHrine 1 MG/ML AMPUL TP (16:46)
[2023-06-08] MEDS: LIDOCAINE 2% UROJET 10ML TP (16:46)
[2023-06-08 17:00] VITALS: BP 128/81; PULSE 77; RESP 20; O2SAT 97
[2023-06-08 18:07] VITALS: BP 128/81; PULSE 78; RESP 18; TEMP 36.7; O2SAT 96
== END 2023-06-08 18:15 | disposition home or self-care (01) ==
PROVIDERS: Emergency Provider Student in an Organized Health Care Education/Training Program; PCP Physician Assistant
DX: S60.552A Superficial foreign body of left hand, initial encounter (principal); K21.9 Gastro-esophageal reflux disease without esophagitis; E78.5 Hyperlipidemia, unspecified; Z87.891 Personal history of nicotine dependence; W45.8XXA Other foreign body or object entering through skin, initial encounter
CPT/HCPCS: 20520; 99283

== ENCOUNTER 2023-06-17 14:23 | Outpatient (CLI) | payer BC, SELFPAY ==
--- NOTE | 2023-06-17 14:24 | MM_ITS ---
PROCEDURE INFORMATION: Exam: MG Bilateral Screening 3D Mammography Exam date and time: 06/17/2023 2:17 PM Age: 48 years old Clinical indication: Screening examination TECHNIQUE: Imaging protocol: Bilateral Screening tomosynthesis and 2D mammography including computer-aided detection (CAD) when performed. COMPARISON: 1. MG MM DIG MAMM DX UNILAT LT CAD 11/12/2022 3:32 PM 2. MG MM DIG SCREENING MAMM BI W/CAD 03/19/2022 3:09 PM FINDINGS: MAMMOGRAPHY: Breast composition: The breasts are heterogeneously dense, which may obscure small masses. Mass: None. Architectural distortion: None. Calcifications: No suspicious calcifications. Asymmetric density: None. Skin thickening: None. Axillary adenopathy: None. IMPRESSION: No mammographic evidence of malignancy. Annual screening is recommended unless otherwise clinically indicated. ASSESSMENT: BI-RADS Category 1: Negative
== END 2023-06-17 23:59 ==
LOC: RAD 14:23
PROVIDERS: PCP Physician Assistant; Visit Provider Nurse Practitioner Obstetrics & Gynecology
DX: Z12.31 Encounter for screening mammogram for malignant neoplasm of breast (principal)
CPT/HCPCS: 77063; 77067

== ENCOUNTER 2023-06-18 18:58 | Outpatient (CLI) | payer BC, SELFPAY ==
[2023-06-18 18:38] LABS: Basophils % 0.4 % (0.1-2.0); Eosinophils # 0.3 K/mm3 (0.0-0.4); Hematocrit 40.9 % (37.0-47.0); Hemoglobin 13.5 g/dL (12.2-16.2); Mean Corpuscular Hemoglobin 30.8 pg (27.0-31.2); Mean Corpuscular Volume 93.4 fl (81-99); Mean Platelet Volume 9.3 fl (7.4-10.4); Monocytes # 0.6 K/mm3 (0.1-1.0); Neutrophils # 6.7 K/mm3 (1.8-7.8); Neutrophils % 69.5 % (37.0-80.0); Platelet Count 335 K/mm3 (142-424); Red Blood Count 4.38 M/mm3 (4.20-5.40); Red Cell Distribution Width 13.8 % (11.5-17.5); White Blood Count 9.6 K/mm3 (4.8-10.8)
[2023-06-18 18:51] LABS: Alanine Aminotransferase 21 U/L (12-78); Albumin/Globulin Ratio 1.7 (1.1-1.8); Alkaline Phosphatase 92 U/L (38-126); Anion Gap 11.3 mEq/L (5-15); Aspartate Amino Transferase 25 U/L (14-36); Bilirubin,Total 0.3 mg/dl (0.2-1.3); Blood Urea Nitrogen 9 mg/dl (7-17); Calcium 9.4 mg/dl (8.4-10.2); Carbon Dioxide 24 mmol/L (22.0-30.0); Chloride 106 mmol/L (98-107); Chol/HDL Ratio 3.9 (1-3.5); Cholesterol 150 mg/dl (140-200); Estimated Glomerular Filt Rate 90 ml/min (>60); GFR (African American) 109 ML/MIN (>60); Globulin 2.4 g/dL (1.3-3.2); Glucose 109 mg/dl (74-100); HDL Cholesterol 38 mg/dl (40-60); Potassium 4.3 mmoL/L (3.5-5.1); Sodium 137 mmol/L (136-145); Total Protein,Serum 6.4 g/dl (6.3-8.2); Triglycerides 259 mg/dl (30-150); VLDL Cholesterol 52 mg/dL (0-40)
[2023-06-18 19:02] LABS: Direct LDL Cholesterol 65.89 mg/dL (100-129)
[2023-06-18 19:07] LABS: 25-OH Vitamin D, Total 52.2 ng/mL (30-100)
[2023-06-18 19:22] LABS: Thyroid Stimulating Hormone 1.04 uIU/mL (0.465-4.68)
[2023-06-18 19:41] LABS: Vitamin B12 544 pg/mL (239-931)
== END 2023-06-18 23:59 ==
LOC: LAB.DROPOF 18:59
PROVIDERS: PCP Physician Assistant; Visit Provider Physician Assistant
DX: K21.9 Gastro-esophageal reflux disease without esophagitis (principal); M79.2 Neuralgia and neuritis, unspecified; F90.9 Attention-deficit hyperactivity disorder, unspecified type; E66.9 Obesity, unspecified; Z68.31 Body mass index [BMI] 31.0-31.9, adult; Z79.899 Other long term (current) drug therapy
CPT/HCPCS: 80053; 80061; 82306; 82607; 84443; 85025

== ENCOUNTER 2023-06-25 10:16 | Outpatient (CLI) | payer BC, SELFPAY ==
[2023-06-25 11:31] LABS: Hemoglobin A1C 5.5 % (4.0-6.0)
== END 2023-06-25 23:59 ==
LOC: LAB 10:16
PROVIDERS: PCP Physician Assistant; Visit Provider Physician Assistant
DX: R73.09 Other abnormal glucose (principal)
CPT/HCPCS: 36415; 83036

== ENCOUNTER 2023-12-22 11:01 | Outpatient (RCR) | payer BC, SELFPAY | END 2023-12-22 11:05 | disposition home or self-care (01) | LOC: PT 11:01 | PROVIDERS: Visit Provider Orthopaedic Surgery | DX: M54.30 Sciatica, unspecified side (principal) | CPT/HCPCS: 97163 ==

== ENCOUNTER 2024-01-25 15:45 | Outpatient (POV) | payer BC, SELFPAY | END 2024-01-25 23:59 | disposition home or self-care (01) | LOC: SC 01-26 06:47 | PROVIDERS: Visit Provider Dermatology | DX: Z00.00 Encounter for general adult medical examination without abnormal findings (principal) ==

== ENCOUNTER 2024-04-28 15:24 | Outpatient (CLI) | payer BC, SELFPAY ==
--- NOTE | 2024-04-28 15:30 | US_ITS ---
FINAL REPORT CLINICAL HISTORY: PELVIC SWELLLING/MASS/LUMP-- SOFT TISSUE MASS LT GROIN COMPARISON: None FINDINGS: Limited sonographic images were obtained of the soft tissues in the abdomen at the area of palpable abnormality. There is a 3.5 cm lobular relatively hyperechoic solid lesion corresponding to the palpable abnormality probably related to a lipoma. There are small adjacent lymph nodes measuring up to 1.6 cm IMPRESSION: Lipoma. Reviewed, Interpreted and Dictated by Samuel Little MD Transcribed by Alaina Mc Authenticated and . [facility]
== END 2024-04-28 23:59 | disposition home or self-care (01) ==
LOC: RAD 15:25
PROVIDERS: PCP Physician Assistant; Visit Provider Physician Assistant
DX: R19.00 Intra-abdominal and pelvic swelling, mass and lump, unspecified site (principal)
CPT/HCPCS: 76705